=== PATIENT | male | born 1970 | race Caucasian/White ===

== ENCOUNTER 2016-07-31 22:54 | Emergency (ER) | payer BC ==
[~2016-07-31] VITALS: Ht 172.7 cm; Wt 81.6 kg
[~2016-07-31 22:54] MED LIST: DIPH25CA65 PO; EPP3/2 IM; ONDA4TAB7 SL; ZNT/150 PO
[2016-07-31 22:55] VITALS: TEMP 37; Ht 172.7 cm; Wt 81.6 kg
[2016-07-31] MEDS ORDERED: IBUP-1050 PO (23:54)
--- NOTE | 2016-07-31 23:56 | EMERGENCY ROOM VISIT NOTE ---
History First contact with patient: 22:58 Chief Complaint: CALF PAIN Stated Complaint: LF CALF CRAMP,WORRIED ABOUT BLOOD CLOT History of Present Illness The patient is a 46 year old male who presents to the Emergency Room with complaints of left calf pain. The patient reports that yesterday he had an intense cramp in his left calf which lasted approximately 5 minutes and has had a dull, aching pain since then. He rates the discomfort a 4/10 and states it is worse with walking. He has been stretching the calf without relief. He denies any numbness or weakness. He reports he is concerned about a possible blood clot. The patient denies any history or family history of blood clots. He is not a smoker. He denies any recent long trips. Review of Systems A complete 6 point review of systems was reviewed with the patient with pertinent positives and negatives as per history of present illness. All else were negative. Family History Diabetes mellitus FH: cancer Hypertension Social History Smoking Status: Never Smoker Alcohol Use: occasionally Housing Status: lives with significant other Occupation Status: employed Current/Historical Medications Scheduled Epinephrine (Epipen), 0.3 MG IM UD Scheduled PRN Diphenhydramine Hcl (Benadryl Allergy), 25-50 MG PO Q6 PRN for ALLERGIC REACTION Ibuprofen (Advil), 200-600 MG PO DIRECTED PRN for Pain Allergies Coded Allergies: Amphetamine (Verified Allergy, Intermediate, HEADACHE, CONFUSED, 07/31/16) Dewitt Blue FCF (Verified Allergy, Intermediate, HEADACHE, CONFUSION, ) Dextroamphetamine (Verified Allergy, Intermediate, HEADACHE, CONFUSED, 07/31) Lisdexamfetamine (Verified Allergy, Intermediate, HEADACHE, CONFUSION, 07/31) Red Dye (Verified Allergy, Intermediate, HEADACHE, CONFUSION, 07/31/16) Yellow Dye (Verified Allergy, Intermediate, HEADACHE, CONFUSION, 07/31/16) Barley (Unverified Allergy, Mild, 07/31/16) [place] Pk Oil (Unverified Allergy, Mild, 07/31/16) Lobster (Unverified Allergy, Mild, 07/31/16) Pea (Unverified Allergy, Mild, 07/31/16) Pork (Unverified Allergy, Mild, 07/31/16) Rice (Unverified Allergy, Mild, 07/31/16) Shrimp (Unverified Allergy, Mild, 07/31/16) Soy Protein (Unverified Allergy, Mild, 07/31/16) Tomato (Unverified Allergy, Mild, 07/31/16) Metoclopramide (Unverified Adverse Reaction, Mild, IRRITABILTY, 07/31/16) Cephalexin (Verified Adverse Reaction, Unknown, heart palpitations, 07/31/16 ) No Known Allergies (Verified , 07/31/16) Uncoded Allergies: TURKEY (Allergy, Intermediate, THROAT SWELLING, 10/05/13) Physical Exam Vital Signs Date Time Temp Pulse Resp B/P Pulse Ox O2 Delivery O2 Flow Rate FiO2 08/01/16 00:01 69 18 133/84 95 07/31/16 22:55 37.0 79 16 160/99 97 Room Air Physical Exam VITALS: Vitals are noted on the nurse's note and reviewed by myself. Vital signs stable. GENERAL: This is a 46-year-old male, in no acute distress, nondiaphoretic, well- developed well-nourished. HEART: Regular rate and rhythm, no murmurs gallops or rubs. LUNGS: Clear to auscultation. MUSCULOSKELETAL: Mild tenderness with palpation of the left posterior calf. No erythema, edema or palpable cords. NEURO: Patient was alert and oriented to person place and time. Normal sensation to light and sharp touch. Medical Decision & Procedures ER Provider Diagnostic Interpretation: ULTRASOUND LEFT LEG: No DVT within the left lower extremity. Medical Decision Differential diagnosis includes muscle strain, DVT, superficial thrombus embolism, among others. The patient was evaluated as above. Ultrasound of left leg was performed and read by stat rad. No DVT was found within the left lower extremity. The patient was encouraged to use anti-inflammatories for pain. He verbalized understanding of my assessment and treatment plan and was discharged home in good condition. Impression Primary Impression: Calf pain Departure Information Dispostion Home / Self-Care Condition GOOD Referrals Vazquez Thomas DO (PCP) Patient Instructions A Signature Page, [facility] Additional Instructions For pain control, you can use the following [id number] medicines (if >12 yo): - Regular strength (325mg/tab) Tylenol (acetaminophen) 2 tabs every 4-6 hours as needed. Do not exceed 12 tablets in a 24 hour period. Avoid taking more than 4 grams (4000 mg) of Tylenol per day. This includes any other sources of acetaminophen you may take on a regular basis. - Regular strength (200 mg/tab) Advil (ibuprofen) 1-2 tabs every 4-6 hours as needed. Do not exceed a dose of 3200 mg per day. Follow-up with your primary care provider for any further concerns.
[2016-08-01 00:01] VITALS: BP 133/84; PULSE 69; O2SAT 95
--- NOTE | 2016-08-01 06:32 | DIAGNOSTIC IMAGING REPORT ---
LEFT LOWER EXTREMITY VENOUS DOPPLER CLINICAL HISTORY: Left calf pain. COMPARISON STUDY: No previous studies for comparison. TECHNIQUE: Sonography of the deep venous system of the left lower extremity was performed. Compression and augmentation were evaluated. FINDINGS: The common femoral, superficial femoral and popliteal veins were compressible. Augmentation was normal. Flow was shown within the deep calf vessels. IMPRESSION: No evidence of deep venous thrombus within the left lower extremity. Electronically signed by: Angel Amaya M.D. 08/01/2016 6:30 AM Dictated Date/Time: 08/01/2016 6:29 AM
== END 2016-08-01 00:02 | disposition home or self-care (01) ==
LOC: C.EDB 22:55
DX: M79.662 Pain in left lower leg (principal)

== ENCOUNTER → 2017-09-01 | Outpatient (CLI) | payer OTHER ==
[~2017-09-01] MED LIST changes: +IBUP-1050 PO; -ONDA4TAB7 SL; -ZNT/150 PO
--- NOTE | 2017-09-01 10:32 | DIAGNOSTIC IMAGING REPORT ---
ULTRASOUND ABDOMEN COMPLETE CLINICAL HISTORY: Generalized abdominal pain. COMPARISON STUDY: Abdominal CT dated 05/15/2008. TECHNIQUE: Real-time, grayscale, and color flow sonography of the abdomen was performed. Images are reviewed in the transverse and longitudinal planes. FINDINGS: Liver: The liver is normal in size and echotexture. There is no intrahepatic biliary ductal dilatation. The main portal vein is patent. Gallbladder: The gallbladder is normal in appearance. No gallstones are identified. There is no gallbladder wall thickening or pericholecystic fluid. A sonographic Noe's sign is reportedly absent. The common bile duct measures up to 0.4 cm in diameter. Pancreas: Not well visualized due to overlying bowel gas. Spleen: The spleen is normal in size and echotexture, measuring 9.8 cm in length. Kidneys: The kidneys are normal in size and echotexture. There is no hydronephrosis. The right kidney measures 10.7 cm in length and the left kidney measures 10.9 cm in length. No shadowing calculi are identified. Abdominal vasculature: Visualized portions of the abdominal aorta and IVC are normal as imaged. Ascites: None. IMPRESSION: Unremarkable sonographic assessment of the abdomen. No gallstones are seen. Electronically signed by: Sunday Felix M.D. 09/01/2017 10:31 AM Dictated Date/Time: 09/01/2017 10:30 AM
== END | disposition home or self-care (01) ==
LOC: C.ULTRBC 07:56
PROVIDERS: ATTEND Family Medicine
DX: R10.84 Generalized abdominal pain (principal)

== ENCOUNTER 2023-10-01 06:02 | Inpatient (IN) ==
[2023-10-01] MEDS: ADENOSINE IV SOLN 3 MG/ML 2 ML VIAL IV ONE (06:23)
--- NOTE | 2023-10-01 06:29 | Emergency Department Note ---
Impression & Plan Atrial fibrillation with rapid ventricular response ED Provider Note Name: MISSY CONNORS Age: 53 Sex: Male Arrives Via: Walk-In Informant: Patient, ED Provider: Mehdi Davis MD Chief Complaint: Palpitations Impression: As per impressions above Medical Decision Making: Pleasant 53-year-old gentleman with a history of GERD seasonal allergies and known increased coronary calcium score. He has been having on and off palpitations several times a month for the last year or so. Usually symptoms resolved after a few minutes however he has been having palpitations and tachycardia since yesterday evening. Has been noticing some shortness of breath and a bit of substernal chest pain at times throughout the evening. Currently on arrival asymptomatic other than feeling the palpitations. Heart rate is right around 150 and relatively steady. Difficult to tell if a flutter/fib/SVT. He was given 6 mg IV adenosine. Rate slowed to the 70s 80s and was clearly a flutter. Patient tolerated this well. He was given 1 L normal saline and several rounds of IV Lopressor. Heart rate minimally changed. He was then given 15 mg IV diltiazem followed by diltiazem drip. After short while he developed a prolonged cardiac pause but then converted to normal sinus rhythm. Patient completely asymptomatic after this feeling much better. Laboratory workup is somewhat reassuring. His initial troponin is within normal range. I discussed the case with hospitalist given his recurrent symptoms and findings here initially. They will bring him in for further management and evaluation. I think this is reasonable. Patient is without any current shortness of breath leg swelling calf pain or other concerning signs or symptoms for PE nor dissection. I do not feel that there is an indication for CT angiography at this time. Will defer anticoagulation decision to hospitalist service. Triage/Nursing Notes reviewed by Me Differential:Premature contractions, electrolyte abnormality, cardiac dysrhythmia, thyroid dysfunction, pulmonary embolism, infection, gastrointestinal, as well as other pathologies. Vital Signs: reviewed and remarkable for tachycardia Interventions: Adenosine 6 mg IV, Lopressor 5 mg IV x 2, Cardizem 50 mg IV, Cardizem drip, normal saline bolus 1 L IV Labs:ED labs Reviewed by me and remarkable for no significant abnormalities Imagin view chest x-ray as per my interpretation no evidence of congestive failure, lobar infiltrate pneumothorax or widened mediastinum. EKG #1:As per my interpretation. Indication palpitation. Atrial fibrillation with rapid ventricular rate at 171 bpm possibly SVT though rate is a bit irregular. QTc is 431. When compared to June 07, 2023 EKG he is no longer in sinus rhythm. EKG #2 as per my interpretation. Indication post spontaneous conversion. Sinus bradycardia 56 bpm with a shortened NV interval. QTc 382. There is no ectopy nor ischemia. On compared to EKG earlier this morning sinus rhythm has replaced previous A-fib RVR. Cardiac/Tele Monitoring: Cardiac Monitoring: An Order was placed for continuous cardiac monitoring. The monitor shows a rate of atrial fibrillation with rapid ventricular response anywhere from 130 to 150 bpm Consults:[place] Hospitalist Service Plan: Disposition:Hospitalization. Condition: Good History of Present Illness: 53-year-old gentleman arrives for evaluation of palpitations. Patient with onset of palpitations around 5 PM last night. Continued throughout the evening. Worse with any exertion. Notes at times he is having substernal chest pressure without radiation. At times he is also feeling a bit short of breath with a heart rate speeds up. Denies any syncope, current chest pain, current shortness of breath. Was feeling fine prior to this. He keeps relatively active without any chest pain or shortness of breath with exertion the last few days. He did have a mild fever and some diarrhea few days ago which is resolved. He took a dose of Benadryl last night hoping that may have helped with this tachycardia without success. He notes long history of tachycardia episodes but it is never been captured while in the ER or at PCP. He has followed with cardiology previously as well. He does have a family history of coronary heart disease with his sister having of a heart attack in the last few years. Patient notes he had a coronary calcium score that was moderately elevated previously. Past Medical History:Coronary calcium, carotid artery calcification, GERD, seasonal allergies Home Medications:Allergy medication Allergies:See Below Vitals:Blood Pressure: 133/85, Pulse 152, RR 18, T 36.1C, O2 100% on RA Physical Exam: GENERAL: Patient is anxious appearing and in mild distress. RESPIRATORY: No dyspnea. Clear to auscultation and equal bilaterally. CARDIOVASCULAR: Tachycardic.No murmur appreciated. GASTROINTESTINAL: Abdomen soft, non-tender, no peritonitis. EXTREMITIES: Normal motion all extremities, no cyanosis, no edema. NEUROLOGIC: Alert and oriented. No focal neurologic deficits appreciated SKIN: No rash, no jaundice, no diaphoresis. PSYCH: Appropriate GCS: 15 ED Course: Times/Reassessments: 6:22 AM. Given 6 mg IV adenosine. Heart rate slowed to the 70s with clear atrial flutter underlying rhythm. Patient tolerated this well heart rate returned back to the 150s shortly thereafter 7:30 AM. Cardizem has been started. Patient having intermittent episodes of normal sinus flipping to A-fib. Eventually had a prolonged cardiac pause but following this was back in normal sinus rhythm without further symptoms. Critical Care: I have personally spent 40 minutes of critical care time in the direct management of this patient. A-fib RVR requiring multiple rounds of IV rate medications. This was a life/limb threatening event. This 40 minutes is in excess of all separately billable procedures. Mehdi Davis MD Past Med/Surg History Medical History Multiple food allergies History of COVID-09 OCTOBER 2020 AND SEPTEMBER 2021 History of anesthesia reaction WITH ONE ARM SURGERY - WHEN WAKING UP SHAKES AND THROWING UP History of esophageal ulcer D/T MULTIPLE FOOD ALLERGIES History of colon polyps BENIGN GERD (gastroesophageal reflux disease) Fatty liver ? History of Lyme disease QUESTIONABLE DX OF (HAS BEEN TX FOR) Borderline high cholesterol RE-CHECK APRIL 2022 Abdominal bloating REASON FOR UPCOMING PROCEDURE Surgical History History of arthroscopy of right knee History of endoscopy History of colonoscopy History of surgery LEFT ARM X2 History of hernia surgery Family History (Updated 10/01/23 @ 08:53 by LIANET العلي) Grandmother Family history of colon cancer Mother , ovarian, breast, mets to brain/lungs Family history of colonic polyps Cancer Mother Family history of cancer Father Heart disease Myocardial infarction Sister Heart disease Other Family history of diabetes mellitus in father Social History Smoking Status: Never smoker Second Hand Exposure: No; Do You Dip or Chew Tobacco: No; Tobacco Cessation Education Requested by Patient: No Hx Alcohol Use: Yes Alcohol type: beer Hx Substance Use: No Preferred Language: Lao Communication Ability: Effective Manager Non Profit Required: No Beliefs That Will Affect Care: None Current Living Situation: Spouse Current Living Situation Comment: AND DAUGHTER Other Information That Helps Us Care for You: No Feels Safe at Home: Yes Safety Concerns: Feels Safe At This Time Assistive Devices: Glasses Allergies Allergies Allergy/AdvReac Type Severity Reaction Status Date / Time amphetamine Allergy Unknown HEADACHE, Verified 10/01/23 08:05 CONFUSED barley Allergy Unknown NAUSEA/FLU Verified 10/01/23 08:05 LIKE SYMPTOMS/BREATHING ISSUES cephalexin Allergy Unknown heart Verified 10/01/23 08:05 palpitations dextroamphetamine Allergy Unknown HEADACHE, Verified 10/01/23 08:05 CONFUSED latex Allergy Unknown ITCHY RASH Verified 10/01/23 08:05 lisdexamfetamine Allergy Unknown HEADACHE, Verified 10/01/23 08:05 CONFUSION peanut Allergy Unknown PEANUT Verified 10/01/23 08:05 BUTTER&PEANUT OIL/NAUSEA/VOMITING/FLU LIKE SYMPTOMS red dye Allergy Unknown HEADACHE, Verified 10/01/23 08:05 CONFUSION shrimp Allergy Unknown NAUSEA/VOMITING/FLU Verified 10/01/23 08:05 LIKE SYMPTOMS yellow dye Allergy Unknown HEADACHE, Verified 10/01/23 08:05 CONFUSION blueberry Allergy Verified 10/01/23 10:28 egg Allergy Verified 10/01/23 11:29 Egg Derived Allergy Verified 10/01/23 11:29 egg yolk Allergy Verified 10/01/23 11:29 lobster Allergy N/V/FLU-LIKE Verified 10/01/23 08:05 SXS Pork/Porcine Containing Allergy N/V/FLU-LIKE Verified 10/01/23 08:05 Products SXS Yeast Allergy Verified 10/01/23 11:29 yeast, dried Allergy Verified 10/01/23 11:29 buckwheat AdvReac Unknown QUESTIONABLE Verified 10/01/23 08:05 ALLERGY - PT NOT SURE metoclopramide AdvReac Unknown IRRITABILTY Verified 10/01/23 08:05 turkey AdvReac Nausea Verified 10/01/23 08:05 [place] Blue FCF Allergy Unknown HEADACHE, Uncoded 10/01/23 08:05 CONFUSION Home Meds Home Medications Medication Instructions Recorded Confirmed azelastine 137 mcg (0.1 %) nasal 2 spray intranasal DAILY PRN 01/03/21 10/01/23 spray aerosol ALLERGIES fluticasone propionate 50 1 spray intranasal DAILY PRN 01/03/21 10/01/23 mcg/actuation nasal ALLERGIES spray,suspension diphenhydramine HCl 25 mg tablet 25 mg PO DAILY PRN ALLERGIES 08/12/21 10/01/23 (Benadryl Allergy) Results & Data (ED) Vital Signs Vital Signs - 24 hr 10/01/23 06:09 10/01/23 06:20 10/01/23 06:23 Temperature 36.1 C L Temperature Source Temporal Artery Scan Pulse Rate 152 H 108 H Pulse Rate [Right Finger] Pulse Rhythm [Right Finger] Respiratory Rate 18 Respiratory Effort / Characteristics Non-Labored Spontaneous Respiratory Depth Normal Respiratory Pattern Blood Pressure 133/85 Blood Pressure [Right Arm] Blood Pressure Mean 101 Blood Pressure Mean [Right Arm] Blood Pressure Position [Right Arm] Pulse Oximetry Oxygen Delivery Method Room Air Sepsis Recent Fever Within 48 Hours No Sepsis New/Unexplained Change in Mental Status No Sepsis Action Taken by Nursing No Action Required 10/01/23 06:26 10/01/23 06:30 10/01/23 06:32 Temperature Temperature Source Pulse Rate 153 H 152 H 149 H Pulse Rate [Right Finger] Pulse Rhythm [Right Finger] Respiratory Rate 23 Respiratory Effort / Characteristics Respiratory Depth Respiratory Pattern Blood Pressure 160/112 H 160/112 H Blood Pressure [Right Arm] Blood Pressure Mean 128 Blood Pressure Mean [Right Arm] Blood Pressure Position [Right Arm] Pulse Oximetry 96 Oxygen Delivery Method Room Air Sepsis Recent Fever Within 48 Hours Sepsis New/Unexplained Change in Mental Status Sepsis Action Taken by Nursing 10/01/23 06:33 10/01/23 06:36 10/01/23 06:37 Temperature Temperature Source Pulse Rate 169 H 80 154 H Pulse Rate [Right Finger] Pulse Rhythm [Right Finger] Respiratory Rate Respiratory Effort / Characteristics Respiratory Depth Respiratory Pattern Blood Pressure Blood Pressure [Right Arm] Blood Pressure Mean Blood Pressure Mean [Right Arm] Blood Pressure Position [Right Arm] Pulse Oximetry Oxygen Delivery Method Sepsis Recent Fever Within 48 Hours Sepsis New/Unexplained Change in Mental Status Sepsis Action Taken by Nursing 10/01/23 06:44 10/01/23 06:59 10/01/23 07:00 Temperature Temperature Source Pulse Rate 132 H 137 H 143 H Pulse Rate [Right Finger] Pulse Rhythm [Right Finger] Respiratory Rate 20 Respiratory Effort / Characteristics Respiratory Depth Respiratory Pattern Blood Pressure 153/116 H 110/94 110/94 Blood Pressure [Right Arm] Blood Pressure Mean 99 Blood Pressure Mean [Right Arm] Blood Pressure Position [Right Arm] Pulse Oximetry 97 Oxygen Delivery Method Room Air Sepsis Recent Fever Within 48 Hours Sepsis New/Unexplained Change in Mental Status Sepsis Action Taken by Nursing 10/01/23 07:09 10/01/23 07:15 10/01/23 07:27 Temperature Temperature Source Pulse Rate 83 81 Pulse Rate [Right Finger] 80 Pulse Rhythm [Right Finger] Irregular Respiratory Rate 15 21 Respiratory Effort / Characteristics Non-Labored Spontaneous Short of Breath SOB on Exertion Respiratory Depth Normal Respiratory Pattern Regular Blood Pressure 121/93 121/93 Blood Pressure [Right Arm] 110/94 Blood Pressure Mean 102 Blood Pressure Mean [Right Arm] 99 Blood Pressure Position [Right Arm] Semi-fowlers Pulse Oximetry 96 95 Oxygen Delivery Method Room Air Room Air Sepsis Recent Fever Within 48 Hours Sepsis New/Unexplained Change in Mental Status Sepsis Action Taken by Nursing 10/01/23 07:30 10/01/23 07:35 10/01/23 07:45 Temperature Temperature Source Pulse Rate 87 52 L 61 Pulse Rate [Right Finger] Pulse Rhythm [Right Finger] Respiratory Rate 22 20 Respiratory Effort / Characteristics Respiratory Depth Respiratory Pattern Blood Pressure 116/88 106/83 Blood Pressure [Right Arm] Blood Pressure Mean 97 90 Blood Pressure Mean [Right Arm] Blood Pressure Position [Right Arm] Pulse Oximetry 96 95 Oxygen Delivery Method Room Air Room Air Sepsis Recent Fever Within 48 Hours Sepsis New/Unexplained Change in Mental Status Sepsis Action Taken by Nursing 10/01/23 07:57 10/01/23 08:00 Temperature Temperature Source Pulse Rate 60 Pulse Rate [Right Finger] 59 L Pulse Rhythm [Right Finger] Irregular Respiratory Rate 17 21 Respiratory Effort / Characteristics Non-Labored Spontaneous Short of Breath SOB on Exertion Respiratory Depth Normal Respiratory Pattern Regular Blood Pressure 112/79 Blood Pressure [Right Arm] 106/83 Blood Pressure Mean 90 Blood Pressure Mean [Right Arm] 90 Blood Pressure Position [Right Arm] Semi-fowlers Pulse Oximetry 96 97 Oxygen Delivery Method Room Air Room Air Sepsis Recent Fever Within 48 Hours Sepsis New/Unexplained Change in Mental Status Sepsis Action Taken by Nursing Laboratory Data 10/01/23 06:20 10/01/23 06:20 Lab Results 10/01/23 Range/Units 06:20 WBC 8.54 (4.8-10.8) K/ul RBC 5.29 (4.70-6.10) M/uL Hgb 17.2 (14.0-18.0) g/dl Hct 48.2 (42.0-52.0) % MCV 91.1 (80.0-100.0) fL MCH 32.5 (25.0-34.0) pg MCHC 35.7 (32.0-36.0) g/dL RDW Std Deviation 39.5 (36.4-46.3) fL RDW Coeff of Tina 11.9 (11.5-14.5) % Plt Count 274 (130-400) K/uL MPV 9.9 (9.4-12.4) fL Immature Gran % (Auto) 0.2 % Neut % (Auto) 46.3 % Lymph % (Auto) 37.0 % [place] % (Auto) 12.5 % Eos % (Auto) 2.8 % Baso % (Auto) 1.2 % Neut # (Auto) 3.95 (1.40-6.50) K/uL Lymph # (Auto) 3.16 (1.20-3.40) K/uL [place] # (Auto) 1.07 H (0.11-0.59) K/uL Eos # (Auto) 0.24 (0.00-0.50) K/uL Baso # (Auto) 0.10 (0.00-0.20) K/uL Immature Gran # (Auto) 0.02 (0.01-0.20) K/uL PT 10.5 (9.0-12.0) Seconds INR 1.0 (0.9-1.1) APTT 30 (21-31) Seconds PTT Ratio 1.1 Sodium 140 (136-145) mmol/L Potassium 3.7 (3.5-5.1) mmol/L Chloride 103 (98-107) mmol/L Carbon Dioxide 27 (21-32) mmol/L Anion Gap 10 (3-11) BUN 13 (6-23) mg/dl Creatinine 0.91 (0.6-1.4) mg/dl Est Cr Clr Drug Dosing 92.9 ml/min Est GFR ( Amer) 112.7 ml/min Est GFR (Non-Af Amer) 97.2 ml/min BUN/Creatinine Ratio 14.3 (10-20) Glucose 122 H (70-99(Fasting)) mg/dl Calcium 9.6 (8.6-10.3) mg/dl Magnesium 2.0 (1.7-2.4) mg/dl Total Bilirubin 0.7 (0.2-1.0) mg/dl Direct Bilirubin 0.1 (0-0.2) mg/dl AST 30 (13-39) U/L ALT 47 (7-52) U/L Alkaline Phosphatase 67 (34-104) U/L Troponin I High Sens 9.4 (0-20) pg/ml Total Protein 7.6 (6.0-8.3) gm/dl Albumin 4.7 (3.4-5.0) gm/dl Triglycerides 161 H (0-150) mg/dl Cholesterol 222 H (0-200) mg/dl LDL Cholesterol, Calc 127 mg/dl VLDL Cholesterol, Calc 32 H (0-30) mg/dl HDL Cholesterol 63 mg/dl Cholesterol/HDL Ratio 3.5 (0-5) TSH 6.906 H (0.300-4.500) uIu/ml Administered Medications Aspirin (Aspirin 81 Mg Ectab) 81 mg PO [facility] Stop: 10/31/23 10:14 Last Admin: 10/01/23 10:26 Dose: 81 mg Documented By: CADY Calcium/Vitamin D (Calcium 600mg + Vit D 400 Iu Tab) 1 tab PO DAILY [facility] Stop: 10/31/23 10:14 Last Admin: 10/01/23 10:26 Dose: 1 tab Documented By: CADY Metoprolol Succinate (Metoprolol Succ 25mg Ext Rel Tab) 12.5 mg PO [facility] Stop: 10/31/23 10:14 Last Admin: 10/01/23 10:26 Dose: 12.5 mg Documented By: CADY Discontinued Medications Adenosine (Adenosine Iv Soln 3 Mg/Ml 2 Ml Vial) Confirm Administered Dose 18 mg IV .STK-MED ONE Stop: 10/01/23 06:20 Last Admin: 10/01/23 06:23 Dose: 6 mg Documented By: DAYDAY Diltiazem HCl (Diltiazem Hcl 5 Mg/Ml 5 Ml Vial) 15 mg IV NOW STA Stop: 10/01/23 06:58 Last Admin: 10/01/23 07:04 Dose: 15 mg Documented By: RAUL Co-signed By: CORRINE Sodium Chloride (Nss) 1,000 mls @ 999 mls/hr IV .Q1H1M ONE Stop: 10/01/23 07:25 Last Infusion: 10/01/23 07:43 Dose: Infused Documented By: Admin: 10/01/23 06:32 Dose: 999 mls/hr Documented By: DAYDAY Diltiazem HCl 125 mg/ Dextrose 125 mls @ 5 mls/hr IV .Q24H [facility]; Protocol Stop: 10/31/23 06:59 Last Titration: 10/01/23 11:00 Dose: Infused Documented By: CADY Co-signed By: HOLLY Admin: 10/01/23 07:26 Dose: 5 mg/hr, 5 mls/hr Documented By: RAUL Co-signed By: KEYSHAWN Magnesium Sulfate/Dextrose (Magnesium Sulfate / D5w) 1 gm in 100 mls @ 50 mls/hr IV Q2H [facility] Stop: 10/01/23 11:44 Last Infusion: 10/01/23 12:37 Dose: Infused Documented By: Admin: 10/01/23 10:19 Dose: 50 mls/hr Documented By: Infusion: 10/01/23 09:54 Dose: Infused Documented By: Admin: 10/01/23 07:53 Dose: 50 mls/hr Documented By: RAUL Metoprolol Tartrate (Metoprolol Tartrate 1 Mg/Ml Vial) 5 mg IV NOW STA Stop: 10/01/23 06:26 Last Admin: 10/01/23 06:32 Dose: 5 mg Documented By: DAYDAY Metoprolol Tartrate (Metoprolol Tartrate 1 Mg/Ml Vial) 5 mg IV NOW STA Stop: 10/01/23 06:39 Last Admin: 10/01/23 06:44 Dose: 5 mg Documented By: DAYDAY Miscellaneous (Stat Iv Infusion Titration Per Protocol) 1 each N/A NOW STA Stop: 10/01/23 06:58 Last Admin: 10/01/23 07:27 Dose: 1 each Documented By: RAUL Potassium Chloride (Potassium Chloride Crtab 20 Meq Tabcr) 40 meq PO NOW STA Stop: 10/01/23 07:35 Last Admin: 10/01/23 07:51 Dose: 40 meq Documented By: RAUL Imaging Data Radiologist's Impression: Chest X-Ray 10/01/23 06:26 XR chest 1V portable CLINICAL HISTORY: chest pain, tachycardia TECHNIQUE: Single frontal radiograph of the chest was obtained. Comparison: Comparison is made to chest radiograph 06/24/2022 FINDINGS: No lines and tubes are seen. The cardiomediastinal silhouette is normal. The lungs are clear. No evidence of pleural effusion or pneumothorax. IMPRESSION: No acute chest disease. ACT 112: Negative or not required by law. Electronically signed by: Prabhakar Sandoval M.D. 10/01/2023 8:38 AM Discharge Plan Visit Data Chief Complaint: Tachycardia Stated Complaint: TACHYCARDIA ED Provider: Mehdi Davis Discharge Problem: Atrial fibrillation with rapid ventricular response Patient Disposition: Admitted As Inpatient Discharge Instructions Interventions: ED Discharge Assessment Last Done: 10/01/23 09:28
[2023-10-01] MEDS: METOPROLOL TARTRATE 1 MG/ML VIAL IV STA ×2 (06:32→06:44)
[2023-10-01] MEDS: SODIUM CHLORIDE 0.9% 1,000 ML IV ONE (06:32)
[2023-10-01 06:55] LABS: Basophils % (auto) 1.2 %; Eosinophils # (auto) 0.24 K/uL (0.00-0.50); Eosinophils % (auto) 2.8 %; Hematocrit (blood only) 48.2 % (42.0-52.0); Hemoglobin 17.2 g/dl (14.0-18.0); Immature Granulocytes # (auto) 0.02 K/uL (0.01-0.20); Immature Granulocytes % (auto) 0.2 %; Lymphocytes # (auto) 3.16 K/uL (1.20-3.40); Mean Corpuscular Hemoglobin 32.5 pg (25.0-34.0); Mean Corpuscular Hgb Conc 35.7 g/dL (32.0-36.0); Mean Corpuscular Volume 91.1 fL (80.0-100.0); Mean Platelet Volume 9.9 fL (9.4-12.4); Monocytes # (auto) 1.07 K/uL (0.11-0.59); Monocytes % (auto) 12.5 %; Neutrophils # (auto) 3.95 K/uL (1.40-6.50); Neutrophils % (auto) 46.3 %; Platelet Count 274 K/uL (130-400); RDW Coefficient of Variation 11.9 % (11.5-14.5); RDW Standard Deviation 39.5 fL (36.4-46.3); Red Blood Count 5.29 M/uL (4.70-6.10); White Blood Count 8.54 K/ul (4.8-10.8)
[2023-10-01] MEDS: dilTIAZem HCl 5 MG/ML 5 ML VIAL IV STA (07:04)
[2023-10-01 07:10] LABS: Albumin Level 4.7 gm/dl (3.4-5.0); BUN Creatinine Ratio 14.3 (10-20); Bilirubin Direct 0.1 mg/dl (0-0.2); Bilirubin,Total 0.7 mg/dl (0.2-1.0); Calcium 9.6 mg/dl (8.6-10.3); Creatinine Clr Calc Pharmacy 92.9 ml/min; Est GFR (African American) 112.7 ml/min; Est GFR (Non-African American) 97.2 ml/min; Potassium 3.7 mmol/L (3.5-5.1); Total Protein 7.6 gm/dl (6.0-8.3)
[2023-10-01 07:16] LABS: Troponin I High Sensitivity 9.4 pg/ml (0-20)
[2023-10-01 07:26] LABS: Thyroid Stimulating Hormone 6.906 uIu/ml (0.300-4.500)
[2023-10-01] MEDS: dilTIAZem HCL 125 MG in DEXTROSE 5% 100 ML IV SCH (07:26)
[2023-10-01] MEDS: STAT IV Infusion **Titration per Protocol STA (07:27)
[2023-10-01 07:33] LABS: Partial Thromboplastin Ratio 1.1; Partial Thromboplastin Time 30 Seconds (21-31); Prothrombin Time 10.5 Seconds (9.0-12.0)
[2023-10-01] MEDS: POTASSIUM CHLORIDE CRTAB 20 MEQ TABCR PO STA (07:51)
[2023-10-01] MEDS: MAGNESIUM SULFATE / D5W 1 GM/100 ML BAG IV SCH (07:53)
--- NOTE | 2023-10-01 08:16 | Electrocardiogram Report ---
Test Reason : Blood Pressure : / mmHG Vent. Rate : 171 BPM Atrial Rate : 000 BPM P-R Int : 000 ms QRS Dur : 074 ms QT Int : 256 ms P-R-T Axes : 000 003 -34 degrees QTc Int : 431 ms Atrial fibrillation with rapid ventricular response Abnormal ECG When compared with ECG of 07-JUN-2023 13:04, Atrial fibrillation has replaced Sinus rhythm Vent. rate has increased BY 101 BPM Confirmed by Cricket Lizama ([id number]) on 10/01/2023 8:16:16 AM Referred By: Confirmed By:Cricket Lizama
--- NOTE | 2023-10-01 08:40 | XRay Report ---
XR chest 1V portable CLINICAL HISTORY: chest pain, tachycardia TECHNIQUE: Single frontal radiograph of the chest was obtained. Comparison: Comparison is made to chest radiograph 06/24/2022 FINDINGS: No lines and tubes are seen. The cardiomediastinal silhouette is normal. The lungs are clear. No evid ence of pleural effusion or pneumothorax. IMPRESSION: No acute chest disease. ACT 112: Negative or not required by law. Electronically signed by: Prabhakar Sandoval M.D. 10/01/2023 8:38 AM
--- NOTE | 2023-10-01 08:50 | History & Physical Report ---
Date of Service October 01, 2023 Assessment & Plan (1) Flutter-fibrillation: Plan: Patient presents with complaints of palpitations and fast HR - Patient reports occurring 2-3 times per month- symptoms as per HPI- usually self limiting and resolves on its own, however this eppisode was longer and more symptomatic with fatigue and palpitations - Following Adenosine administration - Aflutter noted - Converted to NSR on Diltiazem infusion- symptomatic with conversion pause - Currently SR to SB- will stop diltiazem infusion- 2GM Magnesium, 40 KCL, and will initiate Metoprolol 12.5mg PO now - Will have Metoprolol 5mg IV PRN for HR >110 - If returns to flutter- will increase frequency of oral metoprolol - CHADSVASC2- -0 - will initiate aspirin 81mg PO now and daily - discussed stroke risk reduction as well as anticoagulation- revisit based on risk as well as time spent in rhythm - Would be appropriate for outpatient cardiology follow up as well as likely initiating extended monitoring as outpatient prior to cardiology follow up - ECHO eval for any RWMA as well as any chamber enlargement - TSH 6.5 - ECG without STEMI and comparable to his ECG in 2022 without acute change (2) Dyslipidemia: Plan: will obtain lipid panel - medication optimization at that time (3) Carotid artery calcification: Plan: Has had score calculated as per HPI in 2022 as well as stress ECHO in 2022 - Negative - Has not had any anginal symptoms or arrhythmias while actually performing physical stressful job - obtain lipid panel as above as well as HGBA1c (4) Abdominal bloating: Plan: Has previously followed with GI and had EGD performed in 2021 with Colonoscopy - felt his symptoms were GERD/Gastritis related as he has been off his PPI - He is currently not on PPI and does baking soda and water with PPI PRN and feels his symtpoms are controlled - will have PPI PRN (5) Acid reflux: Plan: As above (6) Non-cardiac chest pain: Plan: Reports that left pectoral pain has been present for years - never occurrs with physical activity, but is also not predictable - is somewhat re-producible on the lef midaxillary line - no back pain and no pain around scapula. - likely MSK in nature (7) DVT prophylaxis: Plan: SCDS, Ambulation, ASA History of Present Illness Chief Complaint: palpitations Primary Care Provider: Vazquez Thomas 53 YOM presents to the EMD for palpitations. Patient has medical history of: Coronary artery calcifications- LAD 289, RCA 20 (Score total 309, 2022), HLD, IBS, Seasonal Allergies, GERD. Patient reports palpitations starting late last evening and came to the EMD early this morning. Patient reports that this normally happens to him 2-3 times per month and every time he comes to the EMD he is back to normal. Patient reports that his symptoms always start with abdominal cramping, followed by bloating, and then he notes his HR goes fast, with fluttering feeling and palpitations. Most of the time these break on their own and can last from anywhere from couple of minutes to couple of hours. At times this is associated with left sided chest pain, however he also gets this left pectoral pain even when resting. 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 He never experiences any symptoms of elevated HR, palpitations, or chest pain when doing any of this. In the EMD on arrival he was noted to be with HR 170-180, he was given metoprolol 5mg x2 without effect, and then was given adenosine. Adenosine did slow his HR down to the 70-110 and noted to be Atrial Flutter underlying. He was also placed on Diltiazem infusion at that time. While preparing to see him, he did have a conversion pause of 4.5-5 seconds and returned to NSR/SB with HR in the 50s and BP 106-120 systolic, he was symptomatic with pause. Diltiazem infusion was halted at that time. He was given 2GM magnesium and 40 MEQ Potassium. As this appears to be first time we have caught this on electrical recording, feel that it would be beneficial to monitor in house for 24 hours while possibly setting up extended monitioring as outpatient. We also discussed anticoagulation options, and following calculation of CHADSVASC2, he scored a 0. Will admit to PCU incase he would need further IV medications to control/convert HR, will initiate Metoprolol 12.5 mg daily and will have Metoprolol 5mg IV PRN for HR >110. Will obtain ECHO. Patient does have family history of: CAD, NE, DM, HLD, early cardiac for sister, Dad in 60s from heart attack, CODE: FULL Allergies Allergy/AdvReac Type Severity Reaction Status Date / Time amphetamine Allergy Unknown HEADACHE, Verified 10/01/23 08:05 CONFUSED barley Allergy Unknown NAUSEA/FLU Verified 10/01/23 08:05 LIKE SYMPTOMS/BREATHING ISSUES cephalexin Allergy Unknown heart Verified 10/01/23 08:05 palpitations dextroamphetamine Allergy Unknown HEADACHE, Verified 10/01/23 08:05 CONFUSED latex Allergy Unknown ITCHY RASH Verified 10/01/23 08:05 lisdexamfetamine Allergy Unknown HEADACHE, Verified 10/01/23 08:05 CONFUSION peanut Allergy Unknown PEANUT Verified 10/01/23 08:05 BUTTER&PEANUT OIL/NAUSEA/VOMITING/FLU LIKE SYMPTOMS red dye Allergy Unknown HEADACHE, Verified 10/01/23 08:05 CONFUSION shrimp Allergy Unknown NAUSEA/VOMITING/FLU Verified 10/01/23 08:05 LIKE SYMPTOMS yellow dye Allergy Unknown HEADACHE, Verified 10/01/23 08:05 CONFUSION blueberry Allergy Verified 10/01/23 10:28 lobster Allergy N/V/FLU-LIKE Verified 10/01/23 08:05 SXS Pork/Porcine Containing Allergy N/V/FLU-LIKE Verified 10/01/23 08:05 Products SXS buckwheat AdvReac Unknown QUESTIONABLE Verified 10/01/23 08:05 ALLERGY - PT NOT SURE metoclopramide AdvReac Unknown IRRITABILTY Verified 10/01/23 08:05 soy AdvReac Unknown Gastrointestinal Verified 10/01/23 08:05 Upset turkey AdvReac Nausea Verified 10/01/23 08:05 [place] [employer] [facility] Allergy Unknown HEADACHE, Uncoded 10/01/23 08:05 CONFUSION Home Medications Medication Instructions Recorded Confirmed Type azelastine 137 mcg (0.1 %) nasal 2 spray intranasal DAILY PRN 01/03/21 10/01/23 History spray aerosol ALLERGIES fluticasone propionate 50 1 spray intranasal DAILY PRN 01/03/21 10/01/23 History mcg/actuation nasal ALLERGIES spray,suspension diphenhydramine HCl 25 mg tablet 25 mg PO DAILY PRN ALLERGIES 08/12/21 10/01/23 History (Benadryl Allergy) Past Med/Surg History Medical History Multiple food allergies History of COVID-09 OCTOBER 2020 AND SEPTEMBER 2021 History of anesthesia reaction WITH ONE ARM SURGERY - WHEN WAKING UP SHAKES AND THROWING UP History of esophageal ulcer D/T MULTIPLE FOOD ALLERGIES History of colon polyps BENIGN GERD (gastroesophageal reflux disease) Fatty liver ? History of Lyme disease QUESTIONABLE DX OF (HAS BEEN TX FOR) Borderline high cholesterol RE-CHECK APRIL 2022 Abdominal bloating REASON FOR UPCOMING PROCEDURE Surgical History History of arthroscopy of right knee History of endoscopy History of colonoscopy History of surgery LEFT ARM X2 History of hernia surgery Family History (Updated 10/01/23 @ 08:53 by LIANET العلي) Grandmother Family history of colon cancer Mother , ovarian, breast, mets to brain/lungs Family history of colonic polyps Cancer Mother Family history of cancer Father Heart disease Myocardial infarction Sister Heart disease Other Family history of diabetes mellitus in father Social History Smoking Status: Never smoker Second Hand Exposure: No; Do You Dip or Chew Tobacco: No; Tobacco Cessation Education Requested by Patient: No Hx Alcohol Use: Yes Alcohol type: beer Hx Substance Use: No Preferred Language: Grenadian Communication Ability: Effective Wood Box Maker Required: No Beliefs That Will Affect Care: None Current Living Situation: Spouse Current Living Situation Comment: AND DAUGHTER Other Information That Helps Us Care for You: No Feels Safe at Home: Yes Safety Concerns: Feels Safe At This Time Assistive Devices: Glasses Review of Systems Review of Systems: REVIEW OF SYSTEMS: Constitutional: No fever, sweats or chills Eyes: No diplopia, no worsening or blurred vision ENT: normal hearing, no trouble swallowing Respiratory: No cough, sputum, dyspnea at rest or on exertion Cardiovascular: (+) CP, Palpitations, Abdomen: (+) bloating and pressure, No pain, nausea, vomiting, diarrhea or constipation Musculoskeletal: No joint pain, calf pain, swelling Neurologic: No weakness, numbness/tingling, or balance problems Psychiatric: (+) ADD Skin: No rash or itch Physical Exam Physical Exam: PHYSICAL EXAM: General: awake, alert, no apparent distress Head: Normocephalic, atraumatic ENT: PERRL, EOMI, no pharyngeal exudate, mucous membranes moist Neuro: AAO x 3, speech clear and appropriate, strength intact bilaterally 5/5, sensation intact and equal all extremities and dermatones, no pronator drift Chest: equal rise and fall of the chest, no accessory muscle use, no heaves or thrills, Clear to auscultation, on room air, Cardiac: Regular rate and rhythm, telemetry reviewed- NSR/SB, skin warm dry, cap refill <3 seconds, peripheral pulses +2 no JVD, no murmur, no edema GI: NABS x 4 quadrants, soft, nontender to palpation, no rebound, guarding or tenderness : Spontaneously voiding, no pain, no CVA tenderness, Extremities: Normal inspection, no peripheral edema or erythema, calfs nontender to palpation Psych: Normal mood and affect Skin: no rash or erythema Results & Data Results & Data Vital Signs (Past 12 Hours) Vital Signs Temp Pulse Pulse Resp BP BP Pulse Ox 10/01/23 07:57 59 L 17 106/83 96 10/01/23 07:35 52 L 10/01/23 07:27 81 121/93 10/01/23 07:09 80 15 110/94 96 10/01/23 06:59 137 H 110/94 10/01/23 06:44 132 H 153/116 H 10/01/23 06:37 154 H 10/01/23 06:36 80 10/01/23 06:33 169 H 10/01/23 06:32 149 H 160/112 H 10/01/23 06:26 153 H 10/01/23 06:23 108 H 10/01/23 06:20 152 H 10/01/23 06:09 36.1 C L 18 133/85 O2 Del Method 10/01/23 07:57 Room Air 10/01/23 07:35 10/01/23 07:27 10/01/23 07:09 Room Air 10/01/23 06:59 10/01/23 06:44 10/01/23 06:37 10/01/23 06:36 10/01/23 06:33 10/01/23 06:32 10/01/23 06:26 10/01/23 06:23 10/01/23 06:20 10/01/23 06:09 Room Air Laboratory Results Abnormal lab results 10/01/23 Range/Units 06:20 [place] # (Auto) 1.07 H (0.11-0.59) K/uL Glucose 122 H (70-99(Fasting)) mg/dl TSH 6.906 H (0.300-4.500) uIu/ml Diagnostic Findings Chest X-Ray 10/01/23 06:26 XR chest 1V portable CLINICAL HISTORY: chest pain, tachycardia TECHNIQUE: Single frontal radiograph of the chest was obtained. Comparison: Comparison is made to chest radiograph 06/24/2022 FINDINGS: No lines and tubes are seen. The cardiomediastinal silhouette is normal. The lungs are clear. No evidence of pleural effusion or pneumothorax. IMPRESSION: No acute chest disease. ACT 112: Negative or not required by law. Electronically signed by: Prabhakar Sandoval M.D. 10/01/2023 8:38 AM Medications Administered Home Medications azelastine 137 mcg (0.1 %) nasal spray aerosol 2 spray intranasal DAILY PRN ALLERGIES 01/03/21 [History Confirmed 10/01/23] fluticasone propionate 50 mcg/actuation nasal spray,suspension 1 spray intranasal DAILY PRN ALLERGIES 01/03/21 [History Confirmed 10/01/23] diphenhydramine HCl 25 mg tablet (Benadryl Allergy) 25 mg PO DAILY PRN ALLERGIES 08/12/21 [History Confirmed 10/01/23] Active Medications Magnesium Sulfate/Dextrose (Magnesium Sulfate / D5w) 1 gm in 100 mls @ 50 mls/hr IV Q2H LEVON Stop: 10/01/23 11:44 Last Admin: 10/01/23 07:53 Dose: 50 mls/hr ECG Additional Comments: Sinus bradycardia with short NM Minimal voltage criteria for LVH, may be normal variant ( R in aVL ) Borderline ECG When compared with ECG of 01-OCT-2023 07:13, (unconfirmed) Sinus rhythm has replaced Atrial fibrillation Code Status & VTE Plan VTE Prophylaxis Plan VTE Prophylaxis will be ordered: Yes Supervising Physician Co-Signing Physician Notes Patient seen and examined. The case was discussed with the ZEINA. In brief, this is a 53-year-old male who has had palpitations in the past for which she has been to the emergency room but every time he comes to the ER, he is back in a sinus rhythm. This episode started last night with his typical symptoms of abdominal bloating, discomfort followed by palpitations. This time, he was noted to be in atrial fibrillation/flutter. He was given adenosine, diltiazem. He has since converted to sinus rhythm. His TSH is unremarkable. Echocardiogram is being done. He recently had a stress echocardiogram which was negative. The diltiazem drip has been discontinued and has been started on metoprolol 12.5 mg. His [id number] score is 0. He has thus been started on baby aspirin. We will admit him under observation status and monitor him on telemetry. I agree with the assessment and plan of the ZEINA. PG Care Time/CCT Total # of Minutes Spent Total Time Spent with Patient: Total time spent is greater than 50% in coordination of care (as documented) at patient's floor/unit and/or counseling patient: Coding Level of Care Code 69764 INT INP/OBS CARE 2/55MIN Diagnoses Flutter-fibrillation I48.91; I48.92 Dyslipidemia E78.5 Carotid artery calcification I65.29 Abdominal bloating R14.0 Acid reflux K21.9 Non-cardiac chest pain R07.89 DVT prophylaxis Z29.9
[2023-10-01] MEDS ORDERED: AZELASTINE HCL 0.1% NASAL 200 SPRAYS/27,400 MCG BTL NAE PRN (09:57)
[2023-10-01] MEDS ORDERED: Nursing to Pharmacy Communication SCH (09:57)
[2023-10-01] MEDS ORDERED: FLUTICASONE PROPIONATE NA SPR 16 GM BTL NAE PRN (09:57)
[2023-10-01] MEDS ORDERED: ACETAMINOPHEN 325 MG TAB PO PRN (09:57)
[2023-10-01] MEDS ORDERED: METOPROLOL TARTRATE 1 MG/ML VIAL IV PRN (09:57)
[2023-10-01] MEDS ORDERED: PANTOprazole 40 MG TAB PO PRN (09:57)
[2023-10-01] MEDS: ASPIRIN 81 MG ECTAB PO SCH (10:26)
[2023-10-01] MEDS: METOPROLOL SUCC 25MG EXT REL TAB PO SCH (10:26)
[2023-10-01] MEDS: CALCIUM 600MG + VIT D 400 IU TAB PO SCH (10:26)
[2023-10-01 10:41] LABS: Chol HDL Ratio 3.5 (0-5)
--- NOTE | 2023-10-01 11:35 | Electrocardiogram Report ---
Test Reason : Blood Pressure : / mmHG Vent. Rate : 081 BPM Atrial Rate : 000 BPM P-R Int : 000 ms QRS Dur : 078 ms QT Int : 344 ms P-R-T Axes : 000 000 001 degrees QTc Int : 399 ms Atrial fibrillation Abnormal ECG When compared with ECG of 01-OCT-2023 06:16, Vent. rate has decreased BY 90 BPM Confirmed by Cricket Lizama ([id number]) on 10/01/2023 11:34:40 AM Referred By: REFERRED SELF Confirmed By:Cricket Lizama
--- NOTE | 2023-10-01 11:35 | Electrocardiogram Report ---
Test Reason : Blood Pressure : / mmHG Vent. Rate : 056 BPM Atrial Rate : 056 BPM P-R Int : 108 ms QRS Dur : 080 ms QT Int : 396 ms P-R-T Axes : 007 -07 -12 degrees QTc Int : 382 ms Sinus bradycardia with short NV Minimal voltage criteria for LVH, may be normal variant ( R in aVL ) Borderline ECG When compared with ECG of 01-OCT-2023 07:13, Sinus rhythm has replaced Atrial fibrillation HR has decreased by 25 bpm Confirmed by Cricket Lizama ([id number]) on 10/01/2023 11:35:07 AM Referred By: REFERRED SELF Confirmed By:Cricket Lizama
[2023-10-01 12:01] LABS: Appearance Urine Clear (Clear); Bilirubin Urine Negative (Negative); Blood Urine Negative (Negative); Color Urine Yellow; Glucose Urine UA Negative (Negative); Ketones Urine Negative (Negative); Leukocyte Esterase Urine Negative (Negative); Nitrite Urine Negative (Negative); Protein Urine Negative (Negative); Specific Gravity Urine 1.015 (1.000-1.030); Urobilinogen Urine Negative (Negative); pH Urine 6.5 (4.5-7.5)
--- NOTE | 2023-10-01 12:08 | XCELERA ---
[id number] \\[id number]
[2023-10-02 06:37] LABS: Basophils # (auto) 0.08 K/uL (0.00-0.20); Basophils % (auto) 1.2 %; Eosinophils # (auto) 0.16 K/uL (0.00-0.50); Eosinophils % (auto) 2.4 %; Hematocrit (blood only) 45.6 % (42.0-52.0); Hemoglobin 15.6 g/dl (14.0-18.0); Immature Granulocytes # (auto) 0.01 K/uL (0.01-0.20); Immature Granulocytes % (auto) 0.1 %; Lymphocytes # (auto) 2.52 K/uL (1.20-3.40); Lymphocytes % (auto) 37.3 %; Mean Corpuscular Hgb Conc 34.2 g/dL (32.0-36.0); Mean Corpuscular Volume 93.6 fL (80.0-100.0); Mean Platelet Volume 9.6 fL (9.4-12.4); Monocytes # (auto) 0.72 K/uL (0.11-0.59); Monocytes % (auto) 10.7 %; Neutrophils # (auto) 3.26 K/uL (1.40-6.50); Neutrophils % (auto) 48.3 %; Platelet Count 235 K/uL (130-400); RDW Coefficient of Variation 12.1 % (11.5-14.5); RDW Standard Deviation 41.7 fL (36.4-46.3); Red Blood Count 4.87 M/uL (4.70-6.10); White Blood Count 6.75 K/ul (4.8-10.8)
[2023-10-02 07:11] LABS: BUN Creatinine Ratio 16.3 (10-20); Calcium 8.8 mg/dl (8.6-10.3); Creatinine Clr Calc Pharmacy 91.9 ml/min; Est GFR (African American) 111.2 ml/min; Magnesium 2.2 mg/dl (1.7-2.4); Potassium 3.9 mmol/L (3.5-5.1)
[2023-10-02 07:12] LABS: Estimated Average Glucose 117 mg/dl; Hemoglobin A1C 5.7 % (4.5-5.6)
[2023-10-02] MEDS: POTASSIUM CHLORIDE CRTAB 20 MEQ TABCR PO STA (08:55)
--- NOTE | 2023-10-02 11:41 | Cardiology Consultation ---
Date of Consultation October 02, 2023 Assessment & Plan (1) Paroxysmal atrial fibrillation: (2) Dyslipidemia: (3) Elevated coronary artery calcium score: Plan ASSESSMENT/PLAN: 1. Paroxysmal atrial fibrillation: Discussed the diagnosis with him in detail. Discussed treatment strategies. Because he is so symptomatic, rate control strategy unlikely to be sufficient in controlling his symptoms, and additionally he had a significant symptomatic conversion pauses while on diltiazem IV. Okay to continue with low-dose beta-christine for now. Discussed antiarrhythmic therapy versus ablation. Given his young age and otherwise being healthy, ablation seems like a reasonable option. Tentatively, he is [place] [facility] [place] assist in requesting a referral. [id number] or is 0. Long-term anticoagulation therapy is not necessary at this point. 2. Elevated coronary artery calcium score: No angina, despite regular cardiovascular exercise. Risk factor modification. Can continue aspirin. Recommend high intensity statin therapy. Had unremarkable stress echo on 04/28/2023 with excellent exercise tolerance. 3. Dyslipidemia: Recommend high intensity statin therapy given concern for underlying CAD. 4. Disposition: Can follow-up with his primary gathering machine feeder, Dr. De La O, while awaiting formal EP evaluation in the outpatient setting. No further inpatient cardiology testing necessary at this time. Patient care communicated with primary hospitalist, Dr. Miles. Thank you for allowing me to participate in the care of your patient. Please call for any other questions or concerns. Sincerely, Amrik Hillman M.D. History of Present Illness Reason for Consultation: "aflutter" Requesting Physician: Nichole Carlisle Attending Physician: Jere Miles History of Present Illness Mr. Lynn is a very pleasant 53-year-old gentleman with a history significant for elevated coronary artery calcium score, dyslipidemia, and chronic palpitations. His primary gathering machine feeder is Dr. De La O. He has been experiencing palpitations for years which he attributed to panic attacks. Over the past few months, he has been experiencing increased frequency, approximately twice per month. Episodes of palpitations would typi cierra last a couple of hours. He was admitted on 10/01/2023 after presenting to the emergency department for palpitations. He felt weak, shaky, with racing heart and gastrointestinal bloating which occurred at approximately 9 PM on 09/30/2023. It persisted throughout the night and made it difficult for him to sleep. At 5 AM he came in for evaluation. In the past, by the time he sought medical attention, symptoms had resolved. On this particular instance, symptoms persisted and his initial ECG on 10/01/2023 at 6:16 AM demonstrated atrial fibrillation with rapid ventricular response with heart rate of 171 bpm. According to records, he received adenosine and it was felt as though atrial flutter waves were seen at that time, although that particular rhythm strip is not available for review. He received intravenous diltiazem and converted after a 5.5-second conversion pause which was accompanied by near syncope. He typically does not have near syncope or any other symptom once converting at home. Initial rhythm following conversion appeared to be ectopic atrial rhythm. He was symptomatic even when his A-fib was better controlled and immediately could tell that A-fib converted on 10/01/2023 at 7:31 AM. He has not had any further atrial fibrillation during this hospital stay. He had some chest pain focally on the left lateral chest during A-fib which typically occurs and in general feels exhausted and dyspnea on exertion with his rapid heart rate. Otherwise, he exercises by walking his dog 2 miles and occasionally uses the treadmill and is very active at work and denies exertional chest pain or dyspnea. He denies melena, hematochezia, hematuria, edema, or syncope. He reports transient fever and diarrhea a few days prior to presentation. He denies a history of diabetes hypertension, heart failure, TIA, stroke, or vascular disease. Review of systems: As above. Review of systems otherwise negative/unremarkable. Family history: Father at 62 with [place] and was diabetic. Sister from [place] at 53. Social history: He denies alcohol, tobacco, or drug abuse. He lives at home with his . Has 3 biologic children, a son and a daughter with his first and a daughter with his second . He has 4 grandchildren. 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 He was unaccompanied. Allergies Allergy/AdvReac Type Severity Reaction Status Date / Time amphetamine Allergy Unknown HEADACHE, Verified 10/01/23 08:05 CONFUSED barley Allergy Unknown NAUSEA/FLU Verified 10/01/23 08:05 LIKE SYMPTOMS/BREATHING ISSUES cephalexin Allergy Unknown heart Verified 10/01/23 08:05 palpitations dextroamphetamine Allergy Unknown HEADACHE, Verified 10/01/23 08:05 CONFUSED latex Allergy Unknown ITCHY RASH Verified 10/01/23 08:05 lisdexamfetamine Allergy Unknown HEADACHE, Verified 10/01/23 08:05 CONFUSION peanut Allergy Unknown PEANUT Verified 10/01/23 08:05 BUTTER&PEANUT OIL/NAUSEA/VOMITING/FLU LIKE SYMPTOMS red dye Allergy Unknown HEADACHE, Verified 10/01/23 08:05 CONFUSION shrimp Allergy Unknown NAUSEA/VOMITING/FLU Verified 10/01/23 08:05 LIKE SYMPTOMS yellow dye Allergy Unknown HEADACHE, Verified 10/01/23 08:05 CONFUSION blueberry Allergy Verified 10/01/23 10:28 egg Allergy Verified 10/01/23 11:29 Egg Derived Allergy Verified 10/01/23 11:29 egg yolk Allergy Verified 10/01/23 11:29 lobster Allergy N/V/FLU-LIKE Verified 10/01/23 08:05 SXS Pork/Porcine Containing Allergy N/V/FLU-LIKE Verified 10/01/23 08:05 Products SXS Yeast Allergy Verified 10/01/23 11:29 yeast, dried Allergy Verified 10/01/23 11:29 buckwheat AdvReac Unknown QUESTIONABLE Verified 10/01/23 08:05 ALLERGY - PT NOT SURE metoclopramide AdvReac Unknown IRRITABILTY Verified 10/01/23 08:05 turkey AdvReac Nausea Verified 10/01/23 08:05 [place] Blue [facility] Allergy Unknown HEADACHE, Uncoded 10/01/23 08:05 CONFUSION Home Medications Medication Instructions Recorded Confirmed Type azelastine 137 mcg (0.1 %) nasal 2 spray intranasal DAILY PRN 01/03/21 10/01/23 History spray aerosol ALLERGIES fluticasone propionate 50 1 spray intranasal DAILY PRN 01/03/21 10/01/23 History mcg/actuation nasal ALLERGIES spray,suspension diphenhydramine HCl 25 mg tablet 25 mg PO DAILY PRN ALLERGIES 08/12/21 10/01/23 History (Benadryl Allergy) aspirin 81 mg tablet,delayed 81 mg PO QAM 30 days #30 tabs 10/02/23 Rx release calcium 600 mg-D3 800 unit-mag11 1 tab PO DAILY 30 days #30 tabs 10/02/23 Rx 50 rf-uytw-klqskp-julio cesar-s.borat tablet (Caltrate 600-D Plus Minerals) metoprolol succinate 25 mg 12.5 mg (1/2 x 25 mg) PO QAM 30 10/02/23 Rx tablet,extended release 24 hr days #15 tabs Patient History Medical History (Updated 10/02/23 @ 15:01 by Jose Luis Hillman MD) Paroxysmal atrial fibrillation Multiple food allergies History of COVID-09 OCTOBER 2020 AND SEPTEMBER 2021 History of anesthesia reaction WITH ONE ARM SURGERY - WHEN WAKING UP SHAKES AND THROWING UP History of esophageal ulcer D/T MULTIPLE FOOD ALLERGIES History of colon polyps BENIGN GERD (gastroesophageal reflux disease) Fatty liver ? History of Lyme disease QUESTIONABLE DX OF (HAS BEEN TX FOR) Borderline high cholesterol RE-CHECK APRIL 2022 Abdominal bloating REASON FOR UPCOMING PROCEDURE Surgical History History of arthroscopy of right knee History of endoscopy History of colonoscopy History of surgery LEFT ARM X2 History of hernia surgery Family History (Updated 10/01/23 @ 08:53 by LIANET العلي) Grandmother Family history of colon cancer Mother , ovarian, breast, mets to brain/lungs Family history of colonic polyps Cancer Mother Family history of cancer Father Heart disease Myocardial infarction Sister Heart disease Other Family history of diabetes mellitus in father Social History Smoking Status: Never smoker Second Hand Exposure: No; Do You Dip or Chew Tobacco: No; Hx Alcohol Use: Yes Alcohol type: beer Hx Substance Use: No Preferred Language: Hungarian Communication Ability: Effective Compensation Consultant Required: No Beliefs That Will Affect Care: None Current Living Situation: Spouse Current Living Situation Comment: AND DAUGHTER Feels Safe at Home: Yes Assistive Devices: None Physical Exam Physical Exam: Gen.: No acute distress. Alert and oriented. HEENT: Anicteric sclera. Neck: No JVD. No bruits. Normal carotid upstrokes bilaterally. Cardiac: No ventricular heave. Regular. Normal S1-S2. No murmurs, rubs, or gallops. Pulmonary: Clear to auscultation bilaterally without wheezes, rales, or rhonchi. Abdomen: Soft, nontender, nondistended, with normoactive bowel sounds. No bruits noted. Extremities: 2+ radial pulses bilaterally. 2+ posterior tibialis pulses bilaterally. No edema or cyanosis. Psychiatric: Affect appears appropriate. Results & Data Vital Signs (Past 12 Hours) Vital Signs Temp Pulse Pulse Resp BP Pulse Ox O2 Del Method 10/02/23 07:50 36.9 C 62 19 130/83 99 Room Air 10/02/23 07:20 52 L 10/02/23 04:10 36.8 C 56 L 16 109/79 96 Room Air Laboratory Results Laboratory Results - last 24 hr 10/01/23 10/02/23 Unknown 05:59 WBC 6.75 RBC 4.87 Hgb 15.6 Hct 45.6 MCV 93.6 MCH 32.0 MCHC 34.2 RDW Std Deviation 41.7 RDW Coeff of Tina 12.1 Plt Count 235 MPV 9.6 Immature Gran % (Auto) 0.1 Neut % (Auto) 48.3 Lymph % (Auto) 37.3 [place] % (Auto) 10.7 Eos % (Auto) 2.4 Baso % (Auto) 1.2 Neut # (Auto) 3.26 Lymph # (Auto) 2.52 [place] # (Auto) 0.72 H Eos # (Auto) 0.16 Baso # (Auto) 0.08 Immature Gran # (Auto) 0.01 Sodium 138 Potassium 3.9 Chloride 106 Carbon Dioxide 26 Anion Gap 6 BUN 15 Creatinine 0.92 Est Cr Clr Drug Dosing 91.9 Est GFR ( Amer) 111.2 Est GFR (Non-Af Amer) 96.0 BUN/Creatinine Ratio 16.3 Glucose 110 H Estimat Average Glucose 117 Hemoglobin A1c 5.7 H Calcium 8.8 Magnesium 2.2 Urine Color Yellow Urine Appearance Clear Urine pH 6.5 Ur Specific [place] 1.015 Urine Protein Negative Urine Glucose (UA) Negative Urine Ketones Negative Urine Blood Negative Urine Nitrite Negative Urine Bilirubin Negative Urine Urobilinogen Negative Ur Leukocyte Esterase Negative Diagnostic Findings Chest x-ray report 10/01/2023 reviewed: No acute disease per radiology. ECGs personally reviewed: ECG 10/01/2023 at 6:16 AM: A-fib with RVR 171 bpm. ECG 10/01/2023 at 7:13 AM: A-fib 81 bpm. ECG 10/01/2023 at 8:14 AM: Sinus bradycardia with short NH possible ectopic atrial rhythm 56 bpm.. History and physical report reviewed. Labs reviewed and notable for normal blood counts, stable renal function, normal magnesium, normal potassium, normal renal function, slightly elevated A1c, mildly elevated TSH, normal transaminase levels. ER provider note reviewed. Echo 10/01/2023 report reviewed: Normal LV systolic function and wall motion. EF 60 to 65%. Mild MR. Mildly dilated RV with normal systolic function. Moderate biatrial dilation. Normal RVSP. Telemetry personally reviewed: Atrial fibrillation with rapid ventricular response which converted to sinus versus ectopic atrial rhythm on 10/01/2023 at 7:31 AM following a 5.5-second conversion pause. Cannot exclude atrial flutter initially on telemetry. Medications Administered Current Inpatient Medications Acetaminophen (Acetaminophen 325 Mg Tab) 650 mg PO Q4H PRN PRN Reason: Pain or Fever Stop: 10/31/23 09:56 Aspirin (Aspirin 81 Mg Ectab) 81 mg PO QAM [facility] Stop: 10/31/23 10:14 Last Admin: 10/02/23 08:54 Dose: 81 mg Azelastine HCl (Azelastine Hcl 0.1% Nasal 200 Sprays/27,400 Mcg Btl) 2 sprays SHWETHA DAILY PRN PRN Reason: ALLERGIES Stop: 10/31/23 09:56 Calcium/Vitamin D (Calcium 600mg + Vit D 400 Iu Tab) 1 tab PO DAILY [facility] Stop: 10/31/23 10:14 Last Admin: 10/02/23 08:54 Dose: 1 tab Fluticasone Propionate (Fluticasone Propionate Na Spr 16 Gm Btl) 1 sprays SHWETHA DAILY PRN PRN Reason: ALLERGIES Stop: 10/31/23 09:56 Metoprolol Succinate (Metoprolol Succ 25mg Ext Rel Tab) [facility] [place] Stop: 10/31/23 10:14 Last Admin: 10/02/23 08:54 Dose: 12.5 mg Metoprolol Tartrate (Metoprolol Tartrate 1 Mg/Ml Vial) 5 mg IV Q2H PRN PRN Reason: HR > 120 Stop: 10/31/23 09:56 Pantoprazole Sodium (Pantoprazole 40 Mg Tab) 40 mg PO DAILY PRN PRN Reason: refulx, abdominal bloating Stop: 10/31/23 09:56 PG Care Time/CCT Total # of Minutes Spent Total Time Spent with Patient: Total time spent is greater than 50% in coordination of care (as documented) at patient's floor/unit and/or counseling patient: Coding Level of Care Code 58050 IN/OBS CONSULT LVL 4,60M Diagnoses Paroxysmal atrial fibrillation I48.0 Dyslipidemia E78.5 Elevated coronary artery calcium score R93.1
--- NOTE | 2023-10-02 14:35 | Discharge Summary ---
Discharge Summary Date of Service October 02, 2023 Notes For Next Care Provider Presented in A.flutter, converted while on cardizem drip. has remained in NSR while on metoprolol 12.5 mg - seen by cardiology, recommend Follow up with Dr. De La O. - cardiology did not recommend [facility] anticoagulation Cardiology did recommend high intensity statin - this was NOT started while inpatient. Cardiology recommendation seen after discharge. Patient has follow up appointment with cardiology 10/03, will forward this document to provider so they are aware. Recheck TSH in ~4 weeks Medication Changes From Visit Started metoprolol and ASA 81 mg Admission HPI Per Admitting Provider 53 YOM presents to the EMD for palpitations. Patient has medical history of: Coronary artery calcifications- LAD 289, RCA 20 (Score total 309, 2022), HLD, IBS, Seasonal Allergies, GERD. Patient reports palpitations starting late last evening and came to the EMD early this morning. Patient reports that this normally happens to him 2-3 times per month and every time he comes to the EMD he is back to normal. Patient reports that his symptoms always start with abdominal cramping, followed by bloating, and then he notes his HR goes fast, with fluttering feeling and palpitations. Most of the time these break on their own and can last from anywhere from couple of minutes to couple of hours. At times this is associated with left sided chest pain, however he also gets this left pectoral pain even when resting. 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 He never experiences any symptoms of elevated HR, palpitations, or chest pain when doing any of this. In the EMD on arrival he was noted to be with HR 170-180, he was given metoprolol 5mg x2 without effect, and then was given adenosine. Adenosine did slow his HR down to the 70-110 and noted to be Atrial Flutter underlying. He was also placed on Diltiazem infusion at that time. While preparing to see him, he did have a conversion pause of 4.5-5 seconds and returned to NSR/SB with HR in the 50s and BP 106-120 systolic, he was symptomatic with pause. Diltiazem infusion was halted at that time. He was given 2GM magnesium and 40 MEQ Potas sium. As this appears to be first time we have caught this on electrical recording, feel that it would be beneficial to monitor in house for 24 hours while possibly setting up extended monitioring as outpatient. We also discussed anticoagulation options, and following calculation of CHADSVASC2, he scored a 0. Will admit to PCU incase he would need further IV medications to control/convert HR, will initiate Metoprolol 12.5 mg daily and will have Metoprolol 5mg IV PRN for HR >110. Will obtain ECHO. Patient does have family history of: CAD, RI, DM, HLD, early cardiac for sister, Dad in 60s from heart attack, CODE: FULL Principal Dx & Hospital Course #1 = Principal Diagnosis (1) Flutter-fibrillation: Patient presents with complaints of palpitations and fast HR - Patient reports occurring 2-3 times per month- symptoms as per HPI- usually self limiting and resolves on its own, however this eppisode was longer and more symptomatic with fatigue and palpitations - Following Adenosine administration - Aflutter noted - Converted to NSR on Diltiazem infusion- symptomatic with conversion pause - maintained NSR - Continue Metoprolol 12.5 mg daily l - CHADSVASC2- -0 - will initiate aspirin 81mg PO now and daily - Cardiology consulted - continue Metoprolol - No anticoagulation needed - Outpatient follow up with Dr. De La O, candidate for ablation - Echo: EF 60 to 65%, normal left ventricular wall motion - TSH 6.5 - recommend recheck in 4 weeks (2) Dyslipidemia: triglycerides: 161 LDL: 127 HDL: 60 Cardiology recommended high intensity statin - recommendation seen after discharge, will defer to outpatient cardiology visit 10/03 (3) Carotid artery calcification: Has had score calculated as per HPI in 2022 as well as stress ECHO in 2022 - Has not had any anginal symptoms or arrhythmias while actually performing physical stressful job\ - Lipid panel as above - HgbA1c: 5.7 (4) Abdominal bloating: Has previously followed with GI and had EGD performed in 2021 with Colonoscopy - felt his symptoms were GERD/Gastritis related as he has been off his PPI - He is currently not on PPI and does baking soda and water with PPI PRN and feels his symptoms are controlled -continue PPI PRN (5) Non-cardiac chest pain: Reports that left pectoral pain has been present for years - never occurrs with physical activity, but is also not predictable - is somewhat re-producible on the lef midaxillary line - no back pain and no pain around scapula. - likely MSK in nature Plan Dispo: discharge to home with outpatient cardiology follow up Discharge Exam General: NAD, VS as above Resp: normal respiratory effort, lungs clear to auscultation CV: RRR, no murmur, Abd: normal bowel sounds, non tender, no hepatosplenomegaly Extremities: Moves all extremities, no edema Neuro: A&O x3, Skin: intact, no lesions noted Updated Medication List Medication Instructions Recorded Confirmed Type azelastine 137 mcg (0.1 %) nasal 2 spray intranasal DAILY PRN 01/03/21 10/01/23 History spray aerosol ALLERGIES fluticasone propionate 50 1 spray intranasal DAILY PRN 01/03/21 10/01/23 History mcg/actuation nasal ALLERGIES spray,suspension diphenhydramine HCl 25 mg tablet 25 mg PO DAILY PRN ALLERGIES 08/12/21 10/01/23 History (Benadryl Allergy) aspirin 81 mg tablet,delayed 81 mg PO QAM 30 days #30 tabs 10/02/23 Rx release calcium 600 mg-D3 800 unit-mag11 1 tab PO DAILY 30 days #30 tabs 10/02/23 Rx 50 wq-ioka-qppzyf-julio cesar-s.borat tablet (Caltrate 600-D Plus Minerals) metoprolol succinate 25 mg 12.5 mg (1/2 x 25 mg) PO QAM 30 10/02/23 Rx tablet,extended release 24 hr days #15 tabs Hospital Stay Data Consultations 10/01/23 07:26 ED Decision to Admit Stat 10/02/23 10:02 Consult Cardiology Routine Diagnostic Imagining Performed Chest X-Ray 10/01/23 06:26 XR chest 1V portable CLINICAL HISTORY: chest pain, tachycardia TECHNIQUE: Single frontal radiograph of the chest was obtained. Comparison: Comparison is made to chest radiograph 06/24/2022 FINDINGS: No lines and tubes are seen. The cardiomediastinal silhouette is normal. The lungs are clear. No evidence of pleural effusion or pneumothorax. IMPRESSION: No acute chest disease. ACT 112: Negative or not required by law. Electronically signed by: Prabhakar Sandoval M.D. 10/01/2023 8:38 AM Pending Results Patient Have Any Pending Studies at Discharge: No Discharge Instructions Given to Patient (Per Discharging Provider) Mr. Lynn You were hospitalized after having rapid heart rate/palpitations. You were found to be in abnormal rhythm, called atrial flutter. However, with medication you converted back to normal sinus rhythm. We started you on a medication call Metoprol to help control your heart rate. You were seen by cardiology who was in agreement with this plan, recommended that you did not need anticoagulation or cholesterol medication and you can follow up with Dr. De La O for discussion of further procedure. Dr. De La O's information is attached above. We also tested your thyroid while you were here and this was borderline high. It is recommended that you have this rechecked with your PCP in a few weeks. Medications: We sent a new medication called Metoprolol to your pharmacy. Take once a day. Next dose 3/12 AM. This is an beta christine to help control your heart rate. Common side effects are low blood pressure, lightheadedness or dizziness. Please contact your PCP if you begin to have any of these. We sent a new medication called Aspirin 81mg to your pharmacy. Take once a day. Next dose 3/12 AM. This is an over the counter medication that I have sent to your pharmacy, but insurance may not pay for it and you may need to just purchase this over the counter. This may be stopped shortly by the specimen transporter or PCP. Take your medications as instructed; do not skip a dose of your medicines. Make sure all of your doctors know every medicine you are taking (including [id number] medicines, vitamins, and supplements). Call your primary care provider before taking any new medicines (including over- the-counter medicines, vitamins, and supplements), because some of these may interact with your current medications, or may make your symptoms worse. Tell your primary care provider if you cannot afford your medications. Activity: You can do normal everyday activities as your body allows. Take rest breaks if you feel tired. Do not overexert. Stop activity if you have pain, shortness of breath or feel dizzy. Follow-up appointments: Make an appointment with your primary care physician within one week of discharge. A copy of this summary will be sent to them. Every time you see your primary care physician, or any other doctor, bring your medication list, and a list of questions. CONTACT YOUR PRIMARY CARE PROVIDER if you experience any of the following: Shortness of breath or difficulty breathing Fevers or chills Feeling tired with normal activity or experiencing dizziness or fainting Difficulty following your treatment plan, or difficulty taking medications CALL 911 OR GO TO THE EMERGENCY DEPARTMENT if you experience any of the following: Severe abdominal pain or nausea/vomiting Severe chest pain, or chest pain that radiates (moves) to your jaw or arm Sudden, severe shortness of breath or difficulty breathing Thank you for allowing us to participate in your care. Total Time Total Time Spent Total Time Spent (In Minutes): Time spend day of discharge 40 minutes including direct patient care, medication reconciliation, documentation, review of labs and images, and coordination of care. Coding Level of Care Code 97340 INP/OBS DISCH >30 MIN Diagnoses Flutter-fibrillation I48.91; I48.92 Dyslipidemia E78.5 Carotid artery calcification I65.29 Abdominal bloating R14.0 Non-cardiac chest pain R07.89
--- NOTE | 2023-10-03 06:13 | Electrocardiogram Report ---
Test Reason : Blood Pressure : / mmHG Vent. Rate : 055 BPM Atrial Rate : 055 BPM P-R Int : 110 ms QRS Dur : 088 ms QT Int : 416 ms P-R-T Axes : 034 -08 -04 degrees QTc Int : 397 ms Poor data quality, interpretation may be adversely affected Sinus bradycardia with short PA Minimal voltage criteria for LVH, may be normal variant Nonspecific ST abnormality Abnormal ECG When compared with ECG of 01-OCT-2023 08:14, No significant change was found Confirmed by Jose Luis Hillman ([id number]) on 10/03/2023 6:12:52 AM Referred By: REFERRED SELF Confirmed By:Jose Luis Hillman
== END 2023-10-02 15:02 | disposition home or self-care (01) | DRG 310 ==
LOC: SUATTDRO → ED 06:02 → 2E 08:11 → SUATTDRO 08:11 → 2E 09:28

== ENCOUNTER 2023-12-15 15:38 | Observation (INO) ==
--- NOTE | 2023-12-15 16:00 | Emergency Department Note ---
Impression & Plan Atrial fibrillation with rapid ventricular response ED Provider Note NAME: MISSY CONNORS AGE: 53 SEX: M : 1970 ARRIVES VIA: Walk-In INFORMANT: Patient ED PROVIDER(S): Carlos Schuler DO CHIEF COMPLAINT: chest pain and shortness of breath HPI: Patient is a 53-year-old male with a past medical history of A-fib with RVR, paroxysmal a flutter, reflux who presents to the ER for weakness associated with shortness of breath and chest pain which started this morning at 3 AM. He has had multiple episodes of A-fib. 2 weeks ago was switched to flecainide 50 mg twice daily. He notes he intermittently gets these palpitations. Currently has chest pain shortness of breath when he is up moving around. At rest he has nothing other than feeling very tired and weak and rundown. Feels like his typical A-fib. ADDITIONAL HISTORY OBTAINED: Additional history obtained from who notes that patient last had this in October Chronic Medical/Social Conditions Affecting Care: Per HPI PAST MEDICAL HISTORY:See Below PAST SURGICAL HISTORY:See Below FAMILY HISTORY:See Below SOCIAL HISTORY:See Below HOME MEDICATIONS:See Below ALLERGIES:See Below VITALS:See Below PHYSICAL EXAMINATION: GENERAL: Sitting up in bed, alert, well appearing, well nourished, no distress, non-toxic EYE EXAM: normal conjunctiva. PERRL and EOM's grossly intact. OROPHARYNX: no exudate, no erythema, lips, buccal mucosa, and tongue normal and mucous membranes are moist NECK: supple, no nuchal rigidity, no adenopathy, non-tender LUNGS: Clear to auscultation. Normal chest wall mechanics HEART: Tachycardic and irregular regular, S1 normal and S2 normal ABDOMEN: abdomen soft, non-tender, normo-active bowel sounds, no masses, no rebound or guarding. BACK: Back is symmetrical on inspection and there is no deformity, no midline tenderness, no CVA tenderness. SKIN: no rashes and no bruising UPPER EXTREMITIES: upper extremities are grossly normal. LOWER EXTREMITIES: No pitting edema. NEURO EXAM: Normal sensorium, cranial nerves II-XII grossly intact, normal speech, no gross weakness of arms, no gross weakness of legs. MEDICAL DECISION MAKING: Patient is a 53-year-old male who presents ER for above-stated complaint. IV was established blood work was obtained. Labs show no significant leukocytosis or anemia. BMP with LFTs bilirubin and lipase is unremarkable. Troponin was negative. Upon arrival heart rate was found to be in the 130s and was A-fib with RVR. He was given 5 mg of Lopressor. Heart rate trended down to the 90s to low 100s. Patient had several episodes of long pauses about [address] Kang jesus her from cardiology. He recommended 100 mg of flecainide orally as patient was still in A-fib. He was currently fairly rate controlled. Updated the patient and at bedside. Chest x-ray was unremarkable. Discussed case with the hospitalist for further evaluation management treatment. Patient remained on the pads while in the ER due to the pulses Consults/Care Managements Discussions: Per [facility] Triage Nursing notes reviewed. Limited review of prior medical records performed Vital Signs: reviewed and remarkable for tachy Differential diagnosis: Cardiac ischemia, aortic dissection, pulmonary embolism, pneumothorax, pneumonia, pericarditis, myocarditis, esophageal rupture, GERD, cholecystitis, pancreatitis, musculoskeletal, as well as other pathologies. ER treatment provided: See below Diagnostics interpreted by me include EKG and cardiac monitoring as listed below: -Cardiac Monitoring: An order was placed for continuous cardiac monitoring. The monitor shows a rate of 120 with AFIB rhythm. -ECG: A-fib rate of 118 Left axis No PVCs Nonspecific ST wave changes QTc 423 -Laboratory studies:Interpreted by me as stated above in MDM and shown below. Imaging studies: Xrays: As interpreted by me: Portable AP upright 1 view of the chest shows no focal infiltrate CTs show: none Procedures:none Critical Care: I have personally spent 32 minutes of critical care time in the direct management of this patient. This includes bedside care, interpretation of diagnostic studies, and testing, discussion with consultants, patient, and family members, and other required patient management activities. This 32 minutes is in excess of all separately billable procedures. Past Med/Surg History Problem List (Updated 12/15/23 @ 19:59 by Carlos Schuler DO) Atrial fibrillation with rapid ventricular response (Acute) Suspected sleep apnea Snoring Hypersomnia Atrial flutter with rapid ventricular response Paroxysmal atrial flutter Paroxysmal atrial fibrillation Family history of premature coronary heart disease Elevated coronary artery calcium score History of colon polyps Abdominal bloating REASON FOR UPCOMING PROCEDURE Stomach problems (Acute) Urinary problem (Acute) Heartburn (Acute) Vomiting (Acute) Acid reflux Encounter for pre-operative examination Medical History Flutter-fibrillation Dyslipidemia Carotid artery calcification Paroxysmal atrial fibrillation Multiple food allergies History of COVID-19 History of anesthesia reaction History of esophageal ulcer History of colon polyps GERD (gastroesophageal reflux disease) Fatty liver History of Lyme disease Borderline high cholesterol Abdominal bloating Surgical History History of arthroscopy of right knee History of endoscopy History of colonoscopy History of surgery History of hernia surgery Family History Grandmother Family history of colon cancer Mother Family history of colonic polyps Cancer Mother Family history of cancer Father Heart disease Myocardial infarction Sister Heart disease Other Family history of diabetes mellitus in father Social History Smoking Status: Never smoker Second Hand Exposure: No; Do You Dip or Chew Tobacco: No; Hx Alcohol Use: Yes Alcohol type: beer Hx Substance Use: No Preferred Language: Georgian Communication Ability: Effective Architecture Manager Required: No Beliefs That Will Affect Care: None Current Living Situation: Spouse Current Living Situation Comment: AND DAUGHTER Feels Safe at Home: Yes Assistive Devices: None Allergies Allergies Allergy/AdvReac Type Severity Reaction Status Date / Time amphetamine Allergy Unknown HEADACHE, Verified 11/17/23 09:58 CONFUSED barley Allergy Unknown NAUSEA/FLU Verified 11/17/23 09:58 LIKE SYMPTOMS/BREATHING ISSUES cephalexin Allergy Unknown heart Verified 11/17/23 09:58 palpitations dextroamphetamine Allergy Unknown HEADACHE, Verified 11/17/23 09:58 CONFUSED latex Allergy Unknown ITCHY RASH Verified 11/17/23 09:58 lisdexamfetamine Allergy Unknown HEADACHE, Verified 11/17/23 09:58 CONFUSION peanut Allergy Unknown PEANUT Verified 11/17/23 09:58 BUTTER&PEANUT OIL/NAUSEA/VOMITING/FLU LIKE SYMPTOMS red dye Allergy Unknown HEADACHE, Verified 11/17/23 09:58 CONFUSION shrimp Allergy Unknown NAUSEA/VOMITING/FLU Verified 11/17/23 09:58 LIKE SYMPTOMS yellow dye Allergy Unknown HEADACHE, Verified 11/17/23 09:58 CONFUSION blueberry Allergy Verified 11/17/23 09:58 egg Allergy Verified 11/17/23 09:58 Egg Derived Allergy Verified 11/17/23 09:58 egg yolk Allergy Verified 11/17/23 09:58 lobster Allergy N/V/FLU-LIKE Verified 11/17/23 09:58 SXS Pork/Porcine Containing Allergy N/V/FLU-LIKE Verified 11/17/23 09:58 Products SXS Yeast Allergy Verified 11/17/23 09:58 yeast, dried Allergy Verified 11/17/23 09:58 buckwheat AdvReac Unknown QUESTIONABLE Verified 11/17/23 09:58 ALLERGY - PT NOT SURE metoclopramide AdvReac Unknown IRRITABILTY Verified 11/17/23 09:58 turkey AdvReac Nausea Verified 11/17/23 09:58 [place] Blue FCF Allergy Unknown HEADACHE, Uncoded 11/17/23 09:58 CONFUSION Home Meds Home Medications Medication Instructions Recorded Confirmed shannon extract 120 mg capsule 120 mg PO QAM 11/13/23 12/15/23 aspirin 81 mg tablet,delayed 81 mg PO QAM 11/13/23 12/15/23 release magnesium 250 mg tablet 250 mg PO DAILY 11/13/23 12/15/23 azelastine 137 mcg (0.1 %) nasal 2 spray intranasal BID PRN Other 11/17/23 12/15/23 spray aerosol apixaban 5 mg tablet (Eliquis) 5 mg PO UD 12/15/23 12/15/23 flecainide 50 mg tablet 50 mg PO Q12H 12/15/23 12/15/23 multivitamin 1 tab PO QAM 12/15/23 12/15/23 zolpidem 5 mg tablet 5 mg PO HS 12/15/23 12/15/23 Previous Rx's Medication Instructions Recorded metoprolol succinate 25 mg 12.5 mg (1/2 x 25 mg) PO QAM 30 10/02/23 tablet,extended release 24 hr days #15 tabs Results & Data (ED) Vital Signs Vital Signs - 24 hr 12/15/23 15:40 12/15/23 15:47 12/15/23 15:53 Temperature 36.9 C Temperature Source Temporal Artery Scan Pulse Rate 108 H 128 H 132 H Pulse Rate from SpO2 Sensor Respiratory Rate 15 19 Respiratory Effort / Characteristics Non-Labored Spontaneous Respiratory Depth Normal Blood Pressure 126/74 Blood Pressure Mean 91 Pulse Oximetry 93 Oxygen Delivery Method Room Air Oxygen Flow Rate Sepsis Recent Fever Within 48 Hours No Sepsis New/Unexplained Change in Mental Status No Sepsis Action Taken by Nursing No Action Required Oxygen Flow Rate - Titration 12/15/23 15:54 12/15/23 15:54 12/15/23 15:58 Temperature Temperature Source Pulse Rate 121 H Pulse Rate from SpO2 Sensor 100 H Respiratory Rate 20 Respiratory Effort / Characteristics Respiratory Depth Blood Pressure 125/102 H Blood Pressure Mean 115 Pulse Oximetry 99 96 Oxygen Delivery Method Room Air Oxygen Flow Rate 0 Sepsis Recent Fever Within 48 Hours Sepsis New/Unexplained Change in Mental Status Sepsis Action Taken by Nursing Oxygen Flow Rate - Titration 0 12/15/23 15:58 12/15/23 16:00 12/15/23 16:00 Temperature Temperature Source Pulse Rate 112 H Pulse Rate from SpO2 Sensor 104 H Respiratory Rate 25 H Respiratory Effort / Characteristics Respiratory Depth Blood Pressure 134/96 Blood Pressure Mean 99 Pulse Oximetry 96 97 Oxygen Delivery Method Room Air Oxygen Flow Rate Sepsis Recent Fever Within 48 Hours Sepsis New/Unexplained Change in Mental Status Sepsis Action Taken by Nursing Oxygen Flow Rate - Titration 12/15/23 16:02 12/15/23 16:15 12/15/23 16:15 Temperature Temperature Source Pulse Rate 138 H 92 H 96 H Pulse Rate from SpO2 Sensor 83 Respiratory Rate 19 Respiratory Effort / Characteristics Respiratory Depth Blood Pressure 134/96 120/89 Blood Pressure Mean Pulse Oximetry 93 Oxygen Delivery Method Oxygen Flow Rate Sepsis Recent Fever Within 48 Hours Sepsis New/Unexplained Change in Mental Status Sepsis Action Taken by Nursing Oxygen Flow Rate - Titration 12/15/23 16:15 12/15/23 16:28 12/15/23 16:29 Temperature Temperature Source Pulse Rate 81 135 H Pulse Rate from SpO2 Sensor Respiratory Rate Respiratory Effort / Characteristics Respiratory Depth Blood Pressure 120/89 Blood Pressure Mean 92 Pulse Oximetry Oxygen Delivery Method Oxygen Flow Rate Sepsis Recent Fever Within 48 Hours Sepsis New/Unexplained Change in Mental Status Sepsis Action Taken by Nursing Oxygen Flow Rate - Titration 12/15/23 16:30 12/15/23 16:30 12/15/23 16:45 Temperature Temperature Source Pulse Rate 116 H 124 H Pulse Rate from SpO2 Sensor Respiratory Rate 14 12 Respiratory Effort / Characteristics Respiratory Depth Blood Pressure 150/103 H Blood Pressure Mean 126 Pulse Oximetry 97 99 Oxygen Delivery Method Oxygen Flow Rate Sepsis Recent Fever Within 48 Hours Sepsis New/Unexplained Change in Mental Status Sepsis Action Taken by Nursing Oxygen Flow Rate - Titration 12/15/23 16:46 12/15/23 16:46 12/15/23 17:00 Temperature Temperature Source Pulse Rate 71 Pulse Rate from SpO2 Sensor 72 Respiratory Rate 17 Respiratory Effort / Characteristics Respiratory Depth Blood Pressure 130/103 H 142/104 H Blood Pressure Mean 112 128 Pulse Oximetry 99 Oxygen Delivery Method Oxygen Flow Rate Sepsis Recent Fever Within 48 Hours Sepsis New/Unexplained Change in Mental Status Sepsis Action Taken by Nursing Oxygen Flow Rate - Titration 12/15/23 17:00 12/15/23 17:15 12/15/23 17:15 Temperature Temperature Source Pulse Rate 123 H 100 H Pulse Rate from SpO2 Sensor 66 79 Respiratory Rate 16 18 Respiratory Effort / Characteristics Respiratory Depth Blood Pressure 142/109 H Blood Pressure Mean 113 Pulse Oximetry 100 100 Oxygen Delivery Method Oxygen Flow Rate Sepsis Recent Fever Within 48 Hours Sepsis New/Unexplained Change in Mental Status Sepsis Action Taken by Nursing Oxygen Flow Rate - Titration 12/15/23 17:30 12/15/23 17:30 12/15/23 17:45 Temperature Temperature Source Pulse Rate 105 H 121 H Pulse Rate from SpO2 Sensor 87 73 Respiratory Rate 22 23 Respiratory Effort / Characteristics Respiratory Depth Blood Pressure 126/97 Blood Pressure Mean 100 Pulse Oximetry 99 Oxygen Delivery Method Oxygen Flow Rate Sepsis Recent Fever Within 48 Hours Sepsis New/Unexplained Change in Mental Status Sepsis Action Taken by Nursing Oxygen Flow Rate - Titration 12/15/23 17:45 12/15/23 18:00 12/15/23 18:01 Temperature Temperature Source Pulse Rate 142 H 109 H Pulse Rate from SpO2 Sensor Respiratory Rate 34 H 20 Respiratory Effort / Characteristics Respiratory Depth Blood Pressure 118/94 Blood Pressure Mean 111 Pulse Oximetry Oxygen Delivery Method Oxygen Flow Rate Sepsis Recent Fever Within 48 Hours Sepsis New/Unexplained Change in Mental Status Sepsis Action Taken by Nursing Oxygen Flow Rate - Titration 12/15/23 18:01 12/15/23 18:15 12/15/23 18:15 Temperature Temperature Source Pulse Rate 0 L Pulse Rate from SpO2 Sensor 76 Respiratory Rate 17 Respiratory Effort / Characteristics Respiratory Depth Blood Pressure 157/110 H 123/84 Blood Pressure Mean 126 98 Pulse Oximetry 100 97 Oxygen Delivery Method Room Air Oxygen Flow Rate Sepsis Recent Fever Within 48 Hours Sepsis New/Unexplained Change in Mental Status Sepsis Action Taken by Nursing Oxygen Flow Rate - Titration 12/15/23 18:30 12/15/23 18:31 12/15/23 18:31 Temperature Temperature Source Pulse Rate 114 H 104 H Pulse Rate from SpO2 Sensor 99 H 96 H Respiratory Rate 25 H 20 Respiratory Effort / Characteristics Respiratory Depth Blood Pressure 132/109 H Blood Pressure Mean 123 Pulse Oximetry 96 93 Oxygen Delivery Method Oxygen Flow Rate Sepsis Recent Fever Within 48 Hours Sepsis New/Unexplained Change in Mental Status Sepsis Action Taken by Nursing Oxygen Flow Rate - Titration 12/15/23 18:45 12/15/23 18:45 12/15/23 19:00 Temperature Temperature Source Pulse Rate 102 H 138 H Pulse Rate from SpO2 Sensor 79 88 Respiratory Rate 23 21 Respiratory Effort / Characteristics Respiratory Depth Blood Pressure 127/95 Blood Pressure Mean 110 Pulse Oximetry 97 96 Oxygen Delivery Method Oxygen Flow Rate Sepsis Recent Fever Within 48 Hours Sepsis New/Unexplained Change in Mental Status Sepsis Action Taken by Nursing Oxygen Flow Rate - Titration 12/15/23 19:01 12/15/23 19:01 Temperature Temperature Source Pulse Rate 71 Pulse Rate from SpO2 Sensor 64 Respiratory Rate 20 Respiratory Effort / Characteristics Respiratory Depth Blood Pressure 110/83 Blood Pressure Mean 89 Pulse Oximetry 97 Oxygen Delivery Method Room Air Oxygen Flow Rate Sepsis Recent Fever Within 48 Hours Sepsis New/Unexplained Change in Mental Status Sepsis Action Taken by Nursing Oxygen Flow Rate - Titration Laboratory Data 12/15/23 15:55 12/15/23 15:55 Lab Results 12/15/23 Range/Units 15:55 WBC 6.85 (4.8-10.8) K/ul RBC 5.24 (4.70-6.10) M/uL Hgb 16.7 (14.0-18.0) g/dl Hct 48.1 (42.0-52.0) % MCV 91.8 (80.0-100.0) fL MCH 31.9 (25.0-34.0) pg MCHC 34.7 (32.0-36.0) g/dL RDW Std Deviation 39.3 (36.4-46.3) fL RDW Coeff of Tina 11.6 (11.5-14.5) % Plt Count 261 (130-400) K/uL MPV 9.8 (9.4-12.4) fL Immature Gran % (Auto) 0.1 % Neut % (Auto) 53.7 % Lymph % (Auto) 32.7 % [place] % (Auto) 10.2 % Eos % (Auto) 2.3 % Baso % (Auto) 1.0 % Neut # (Auto) 3.67 (1.40-6.50) K/uL Lymph # (Auto) 2.24 (1.20-3.40) K/uL [place] # (Auto) 0.70 H (0.11-0.59) K/uL Eos # (Auto) 0.16 (0.00-0.50) K/uL Baso # (Auto) 0.07 (0.00-0.20) K/uL Immature Gran # (Auto) 0.01 (0.01-0.20) K/uL Sodium 141 (136-145) mmol/L Potassium 4.2 (3.5-5.1) mmol/L Chloride 106 (98-107) mmol/L Carbon Dioxide 30 (21-32) mmol/L Anion Gap 5 (3-11) BUN 15 (6-23) mg/dl Creatinine 0.96 (0.6-1.4) mg/dl Est Cr Clr Drug Dosing 88.1 ml/min Est GFR ( Amer) 105.6 ml/min Est GFR (Non-Af Amer) 91.2 ml/min BUN/Creatinine Ratio 15.6 (10-20) Glucose 100 H (70-99(Fasting)) mg/dl Calcium 9.5 (8.6-10.3) mg/dl Magnesium 2.2 (1.7-2.4) mg/dl Total Bilirubin 0.6 (0.2-1.0) mg/dl AST 21 (13-39) U/L ALT 25 (7-52) U/L Alkaline Phosphatase 65 (34-104) U/L Troponin I High Sens 7.2 (0-20) pg/ml Total Protein 7.5 (6.0-8.3) gm/dl Albumin 4.4 (3.4-5.0) gm/dl Globulin 3.1 (2.5-4.0) gm/dl Albumin/Globulin Ratio 1.4 (0.9-2) Lipase 15 (11-82) U/L Administered Medications Discontinued Medications Flecainide Acetate (Flecainide Acetate 100 Mg Tablet) 100 mg PO NOW STA Stop: 12/15/23 17:52 Last Admin: 12/15/23 18:55 Dose: 100 mg Documented By: NERIS Sodium Chloride (Nss) 1,000 mls @ 999 mls/hr IV .Q1H1M ONE Stop: 12/15/23 16:57 Last Infusion: 12/15/23 17:04 Dose: Infused Documented By: Admin: 12/15/23 16:03 Dose: 999 mls/hr Documented By: NERIS Metoprolol Tartrate (Metoprolol Tartrate 1 Mg/Ml Vial) 5 mg IV NOW STA Stop: 12/15/23 15:58 Last Admin: 12/15/23 16:02 Dose: 5 mg Documented By: NERIS Imaging Data Radiologist's Impression: Chest X-Ray 12/15/23 15:56 SINGLE VIEW CHEST CLINICAL HISTORY: Atypical chest pain FINDINGS: An AP, portable, upright chest radiograph is compared to chest x-ray and chest CT dated 11/16/2023. The heart is enlarged. The pulmonary vasculature is noncongested. There is left basilar scarring/atelectasis. The lungs and pleural spaces are otherwise clear. No pneumothorax is seen. The bony thorax is grossly intact. IMPRESSION: Cardiomegaly with no active disease in the chest. ACT 112: Negative or not required by law. Electronically signed by: Sunday Felix M.D. 12/15/2023 4:17 PM Discharge Plan Visit Data Chief Complaint: Chest Pain Stated Complaint: AFIB ALL MORNING, CHEST PAIN, DIZZY ED Provider: Carlos Schuler Discharge Problem: Atrial fibrillation with rapid ventricular response Forms Stand Alone Forms: [facility] Prescriptions Prescriptions: No Action azelastine 137 mcg (0.1 %) aerosol,spray 2 spray intranasal BID PRN (Reason: Other) Rx Instructions: administer into each nostril metoprolol succinate 25 mg Tablet Extended Release 24 Hr 12.5 mg PO QAM 30 Days Qty: 15 1RF aspirin 81 mg tablet,delayed release (DR/EC) 81 mg PO QAM magnesium 250 mg Tablet 250 mg PO DAILY ashwagandha extract 120 mg Capsule 120 mg PO QAM multivitamin [Men's Multi-Vitamin] Tablet 1 tab PO QAM flecainide 50 mg tablet 50 mg PO Q12H zolpidem 5 mg tablet 5 mg PO HS Eliquis 5 mg tablet 5 mg PO UD Rx Instructions: Not taking this medication yet. Will take a month before procedure Referrals Referrals: Vazquez Thomas [Primary Care Provider] -
[2023-12-15] MEDS: METOPROLOL TARTRATE 1 MG/ML VIAL IV STA (16:02)
[2023-12-15] MEDS: SODIUM CHLORIDE 0.9% 1,000 ML IV ONE (16:03)
[2023-12-15 16:11] LABS: Basophils # (auto) 0.07 K/uL (0.00-0.20); Eosinophils # (auto) 0.16 K/uL (0.00-0.50); Eosinophils % (auto) 2.3 %; Hematocrit (blood only) 48.1 % (42.0-52.0); Hemoglobin 16.7 g/dl (14.0-18.0); Immature Granulocytes # (auto) 0.01 K/uL (0.01-0.20); Immature Granulocytes % (auto) 0.1 %; Lymphocytes # (auto) 2.24 K/uL (1.20-3.40); Lymphocytes % (auto) 32.7 %; Mean Corpuscular Hemoglobin 31.9 pg (25.0-34.0); Mean Corpuscular Hgb Conc 34.7 g/dL (32.0-36.0); Mean Corpuscular Volume 91.8 fL (80.0-100.0); Mean Platelet Volume 9.8 fL (9.4-12.4); Monocytes % (auto) 10.2 %; Neutrophils # (auto) 3.67 K/uL (1.40-6.50); Neutrophils % (auto) 53.7 %; Platelet Count 261 K/uL (130-400); RDW Coefficient of Variation 11.6 % (11.5-14.5); RDW Standard Deviation 39.3 fL (36.4-46.3); Red Blood Count 5.24 M/uL (4.70-6.10); White Blood Count 6.85 K/ul (4.8-10.8)
--- NOTE | 2023-12-15 16:19 | XRay Report ---
SINGLE VIEW CHEST CLINICAL HISTORY: Atypical chest pain FINDINGS: An AP, portable, upright chest radiograph is compared to chest x-ray and chest CT dated 10/23. The heart is enlarged. The pulmonary vasculature is noncongested. There is left basilar scarr ing/atelectasis. The lungs and pleural spaces are otherwise clear. No pneumothorax is seen. The bony thorax is grossly intact. IMPRESSION: Cardiomegaly with no active disease in the chest. ACT 112: Negative or not required by law. Electronically signed by: Sunday Felix M.D. 12/15/2023 4:17 PM
[2023-12-15 16:27] LABS: Albumin Globulin Ratio 1.4 (0.9-2); Albumin Level 4.4 gm/dl (3.4-5.0); BUN Creatinine Ratio 15.6 (10-20); Bilirubin,Total 0.6 mg/dl (0.2-1.0); Calcium 9.5 mg/dl (8.6-10.3); Creatinine Clr Calc Pharmacy 88.1 ml/min; Est GFR (African American) 105.6 ml/min; Est GFR (Non-African American) 91.2 ml/min; Globulin 3.1 gm/dl (2.5-4.0); Potassium 4.2 mmol/L (3.5-5.1); Total Protein 7.5 gm/dl (6.0-8.3)
[2023-12-15 16:32] LABS: Troponin I High Sensitivity 7.2 pg/ml (0-20)
--- NOTE | 2023-12-15 18:22 | History & Physical Report ---
Date of Service December 15, 2023 Assessment & Plan (1) Paroxysmal atrial fibrillation: Plan: Paroxysmal atrial fibrillation Switched to flecainide 50 mg twice daily 2 weeks ago, previously on metoprolol Received flecainide 100 mg metoprolol 5 mg while in the ER. Patient with tachycardia to the 130s and intermittent sinus pauses up to 4.5 seconds Discussed with cardiology. Patient has been given flecainide 100 mg. If he continues to have tachycardic could give another 50 mg p.o. overnight, and then recommend continuing flecainide 150 mg twice daily moving forward. Could consider Multaq if patient is not responsive to this, however we will reassess based on overnight response. Appreciate recommendations [id number] of 0 Admitted to PCU Troponin normal on admission No signs of rate related failure - Magnesium added on admission. Optimize to goal 2.0 Plan DVT prophylaxis: Lovenox Disposition: PCU CODE STATUS: Full code Diet: Heart healthy. Patient is with a peanut, egg, and partly allergies. Noted History of Present Illness Primary Care Provider: Vazquez Thomas Mega is a 53-year-old male with past medical history of paroxysmal atrial fibrillation on metoprolol, hyperlipidemia, GERD, palpitations, anxiety/panic attacks with last stress echo 11/16/2023 showing no ischemic EKG changes and no stress-induced wall motion abnormalities presents with A-fib RVR with intermittent bradycardia/pauses up to approximately 4 and half seconds. He has had weakness, shortness of breath, dyspnea which started at 3 AM. 2 weeks ago he was switched to flecainide 50 mg twice daily from metoprolol. This initially seemed to help and noticed the frequency of his A-fib episodes which were brought up by exertion decreased until he had his recurrence yesterday, which persisted and was worse 3 months morning. He has brief episodes of chest pain which he notices when his heart swings from a high heart rate to a low heart rate. Denies persistent chest pain. No syncope. No chest pain at time of assessment. No leg swelling. No fever, chills, sweats. He follows with [facility] cardiology locally; he reports that he did reach out to multiple cardiology groups including [place] and [place] for ablation however these had an extended delay and was not able to get in for some time. [facility] Dr. Neil was able to see him right away so they have recently established with his practice. Saw him 2 to 3 weeks ago and was started on flecainide 50 mg twice daily with his 12.5 mg of daily metoprolol continued. He notes that this initially seemed to help until his current episode. Denies tobacco use Denies alcohol use Full code Medication allergies reviewed Allergies Allergy/AdvReac Type Severity Reaction Status Date / Time amphetamine Allergy Unknown HEADACHE, Verified 11/17/23 09:58 CONFUSED barley Allergy Unknown NAUSEA/FLU Verified 11/17/23 09:58 LIKE SYMPTOMS/BREATHING ISSUES cephalexin Allergy Unknown heart Verified 11/17/23 09:58 palpitations dextroamphetamine Allergy Unknown HEADACHE, Verified 11/17/23 09:58 CONFUSED latex Allergy Unknown ITCHY RASH Verified 11/17/23 09:58 lisdexamfetamine Allergy Unknown HEADACHE, Verified 11/17/23 09:58 CONFUSION peanut Allergy Unknown PEANUT Verified 11/17/23 09:58 BUTTER&PEANUT OIL/NAUSEA/VOMITING/FLU LIKE SYMPTOMS red dye Allergy Unknown HEADACHE, Verified 11/17/23 09:58 CONFUSION shrimp Allergy Unknown NAUSEA/VOMITING/FLU Verified 11/17/23 09:58 LIKE SYMPTOMS yellow dye Allergy Unknown HEADACHE, Verified 11/17/23 09:58 CONFUSION blueberry Allergy Verified 11/17/23 09:58 egg Allergy Verified 11/17/23 09:58 Egg Derived Allergy Verified 11/17/23 09:58 egg yolk Allergy Verified 11/17/23 09:58 lobster Allergy N/V/FLU-LIKE Verified 11/17/23 09:58 SXS Pork/Porcine Containing Allergy N/V/FLU-LIKE Verified 11/17/23 09:58 Products SXS Yeast Allergy Verified 11/17/23 09:58 yeast, dried Allergy Verified 11/17/23 09:58 buckwheat AdvReac Unknown QUESTIONABLE Verified 11/17/23 09:58 ALLERGY - PT NOT SURE metoclopramide AdvReac Unknown IRRITABILTY Verified 11/17/23 09:58 turkey AdvReac Nausea Verified 11/17/23 09:58 [place] Blue FCF Allergy Unknown HEADACHE, Uncoded 11/17/23 09:58 CONFUSION Home Medications Medication Instructions Recorded Confirmed Type metoprolol succinate 25 mg 12.5 mg (1/2 x 25 mg) PO QAM 30 03/11/24 04/26/24 Rx tablet,extended release 24 hr days #15 tabs shannon extract 120 mg capsule 120 mg PO QAM 11/13/23 11/17/23 History aspirin 81 mg tablet,delayed 81 mg PO QAM 11/13/23 11/17/23 History release calcium carbonate 600 mg-vitamin 1 tab PO DAILY 11/13/23 11/17/23 History D3 20 mcg (800 unit) chewable tablet (Caltrate 600 plus D) magnesium 250 mg tablet 250 mg PO DAILY 11/13/23 11/17/23 History vitamin B complex 1 tab PO DAILY 11/13/23 11/17/23 History azelastine 137 mcg (0.1 %) nasal 2 spray intranasal BID 11/17/23 11/17/23 History spray aerosol Past Med/Surg History Problem List (Updated 12/01/23 @ 00:09 by Christiano Victoria) Suspected sleep apnea Snoring Hypersomnia Atrial flutter with rapid ventricular response Paroxysmal atrial flutter Paroxysmal atrial fibrillation Family history of premature coronary heart disease Elevated coronary artery calcium score History of colon polyps Abdominal bloating REASON FOR UPCOMING PROCEDURE Stomach problems (Acute) Urinary problem (Acute) Heartburn (Acute) Vomiting (Acute) Acid reflux Encounter for pre-operative examination Medical History Flutter-fibrillation Dyslipidemia Carotid artery calcification Paroxysmal atrial fibrillation Multiple food allergies History of COVID-19 History of anesthesia reaction History of esophageal ulcer History of colon polyps GERD (gastroesophageal reflux disease) Fatty liver History of Lyme disease Borderline high cholesterol Abdominal bloating Surgical History History of arthroscopy of right knee History of endoscopy History of colonoscopy History of surgery History of hernia surgery Family History Grandmother Family history of colon cancer Mother Family history of colonic polyps Cancer Mother Family history of cancer Father Heart disease Myocardial infarction Sister Heart disease Other Family history of diabetes mellitus in father Social History Smoking Status: Never smoker Second Hand Exposure: No; Do You Dip or Chew Tobacco: No; Hx Alcohol Use: Yes Alcohol type: beer Hx Substance Use: No Preferred Language: Hungarian Communication Ability: Effective 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 NAD. Cooperative. HEENT: Atraumatic, normocephalic. Pulm: CTAB A&P. -wheezes, -rales, -rhonchi. Symmetrical chest rise. No increased work of breathing. No respiratory distress. Cardiac: Regularly irregular swaying from heart rate of around 70s to 150s while in the room. No murmur Abdominal: Nontender, nondistended, soft. BS present. Extremities: Warm, dry no edema Results & Data Results & Data Vital Signs (Past 12 Hours) Vital Signs Temp Pulse Resp BP Pulse Ox O2 Del Method O2 Flow Rate 12/15/23 18:01 157/110 H 100 Room Air 12/15/23 18:01 109 H 20 12/15/23 18:00 142 H 34 H 12/15/23 17:45 118/94 12/15/23 17:45 121 H 23 12/15/23 17:30 105 H 22 99 12/15/23 17:30 126/97 12/15/23 17:15 142/109 H 12/15/23 17:15 100 H 18 100 12/15/23 17:00 123 H 16 100 12/15/23 17:00 142/104 H 12/15/23 16:46 130/103 H 12/15/23 16:46 71 17 99 12/15/23 16:45 124 H 12 99 12/15/23 16:30 150/103 H 12/15/23 16:30 116 H 14 97 12/15/23 16:29 135 H 12/15/23 16:28 81 12/15/23 16:15 120/89 12/15/23 16:15 96 H 19 93 12/15/23 16:15 92 H 120/89 12/15/23 16:02 138 H 134/96 12/15/23 16:00 134/96 12/15/23 16:00 112 H 25 H 97 12/15/23 15:58 96 Room Air 12/15/23 15:58 96 Room Air 0 12/15/23 15:54 121 H 20 99 12/15/23 15:54 125/102 H 12/15/23 15:53 132 H 12/15/23 15:47 128 H 19 12/15/23 15:40 36.9 C 108 H 15 126/74 93 Room Air PG Care Time/CCT Total # of Minutes Spent Total Time Spent with Patient: Total time spent is greater than 50% in coordination of care (as documented) at patient's floor/unit and/or counseling patient: Coding Level of Care Code 47381 INT INP/OBS CARE 3/75MIN Diagnoses Paroxysmal atrial fibrillation I48.0
[2023-12-15] MEDS ORDERED: ZOLPIDEM TARTRATE 5 MG TAB PO PRN (18:52)
[2023-12-15] MEDS: FLECAINIDE ACETATE 100 MG TABLET PO STA (18:55)
[2023-12-15 19:15] LABS: Magnesium 2.2 mg/dl (1.7-2.4)
[2023-12-15] MEDS ORDERED: ACETAMINOPHEN 325 MG TAB PO PRN (21:23)
[2023-12-15] MEDS: ENOXAPARIN INJ 40 MG/0.4 ML SYR SQ SCH (21:55)
[2023-12-16 08:31] LABS: Basophils # (auto) 0.08 K/uL (0.00-0.20); Basophils % (auto) 1.2 %; Eosinophils # (auto) 0.16 K/uL (0.00-0.50); Eosinophils % (auto) 2.4 %; Hematocrit (blood only) 41.8 % (42.0-52.0); Hemoglobin 14.5 g/dl (14.0-18.0); Immature Granulocytes # (auto) 0.01 K/uL (0.01-0.20); Immature Granulocytes % (auto) 0.1 %; Lymphocytes # (auto) 2.34 K/uL (1.20-3.40); Lymphocytes % (auto) 34.4 %; Mean Corpuscular Hemoglobin 31.4 pg (25.0-34.0); Mean Corpuscular Hgb Conc 34.7 g/dL (32.0-36.0); Mean Corpuscular Volume 90.5 fL (80.0-100.0); Mean Platelet Volume 9.8 fL (9.4-12.4); Monocytes # (auto) 0.67 K/uL (0.11-0.59); Monocytes % (auto) 9.9 %; Neutrophils # (auto) 3.54 K/uL (1.40-6.50); Platelet Count 243 K/uL (130-400); RDW Coefficient of Variation 11.9 % (11.5-14.5); RDW Standard Deviation 39.2 fL (36.4-46.3); Red Blood Count 4.62 M/uL (4.70-6.10)
[2023-12-16 08:57] LABS: BUN Creatinine Ratio 14.8 (10-20); Calcium 8.7 mg/dl (8.6-10.3); Creatinine Clr Calc Pharmacy 96.1 ml/min; Est GFR (African American) 115.3 ml/min; Est GFR (Non-African American) 99.5 ml/min; Potassium 3.7 mmol/L (3.5-5.1)
[2023-12-16] MEDS: FLECAINIDE ACETATE 100 MG TABLET PO SCH (09:24)
[2023-12-16] MEDS: METOPROLOL SUCC 25MG EXT REL TAB PO SCH (09:24)
[2023-12-16] MEDS: ASPIRIN 81 MG ECTAB PO SCH (09:25)
--- NOTE | 2023-12-16 11:03 | Cardiology Consultation ---
Date of Consultation December 16, 2023 Assessment & Plan (1) Paroxysmal atrial fibrillation: -converted to sinus rhythm on an increased dose of flecainide. -scheduled for an ablation at the [facility] in March. -no need for long-term anticoagulation as his CHADSVasc score is 0. -would check QT interval this morning. -if QT interval normal, discharge on flecainide 150 mg b.i.d. History of Present Illness Attending Physician: Shiva High MD History of Present Illness Mr. Lynn is a 53-year-old male admitted yesterday with atrial fibrillation and a rapid ventricular response. This consultation was ordered to assistance cardiac management. Of note, patient is typically followed by Dr. De La O in the outpatient setting. He has also been seen by hot tamale worker, Dr. Neil, at the [facility]. The patient was in his usual state of health until approximately 7:00 a.m. yesterday. He developed symptomatic atrial fibrillation which he confirmed by his Apple watch and phototypesetting equipment monitor. His dysrhythmia typically converts relatively quickly, however, it continued throughout the entire day. Therefore, he presented to the emergency room for further care. On arrival here, he was in atrial fibrillation with a rapid ventricular response. Dr. Marquez was contacted and suggested they administer an additional 100 mg of flecainide. Fortunately, this converted the patient to sinus rhythm at approximately 11:00 p.m. last evening. He has remained in sinus rhythm since that time. He was seen at the [facility] 2 or 3 weeks ago and has been set up for an ablation which will be performed in March. He was started on flecainide 50 mg b.i.d. at that time. He does not take long-term anticoagulation as his CHADSVasc score is 0. The patient did have an echocardiogram performed on September 30 which noted normal left trigger systolic function with ejection fraction of 60-65%. There was mild mitral regurgitation. He then underwent a stress echocardiogram on November 15 which showed no evidence of myocardial ischemia at 12.1 METS and peak heart rate of 86% predicted maximum. Currently, patient is resting comfortably in bed without complaints. Past medical and surgical history 1. Paroxysmal atrial fibrillation 2. Hypercholesterolemia 3. GERD 4. Colonic polyps 5. History of esophageal ulcer 6. Anxiety 7. Panic attacks 8. Right knee arthroscopy 9. Inguinal hernia repair Social history and lives with his Works for the [employer] at [facility] No tobacco alcohol Family history Father at 62 of an NH. A sister at 53 from an NH. Review of systems A 10 point review of systems was undertaken and negative except for that described above. Allergies Allergy/AdvReac Type Severity Reaction Status Date / Time amphetamine Allergy Unknown HEADACHE, Verified 11/17/23 09:58 CONFUSED barley Allergy Unknown NAUSEA/FLU Verified 11/17/23 09:58 LIKE SYMPTOMS/BREATHING ISSUES cephalexin Allergy Unknown heart Verified 11/17/23 09:58 palpitations dextroamphetamine Allergy Unknown HEADACHE, Verified 11/17/23 09:58 CONFUSED latex Allergy Unknown ITCHY RASH Verified 11/17/23 09:58 lisdexamfetamine Allergy Unknown HEADACHE, Verified 11/17/23 09:58 CONFUSION peanut Allergy Unknown PEANUT Verified 11/17/23 09:58 BUTTER&PEANUT OIL/NAUSEA/VOMITING/FLU LIKE SYMPTOMS red dye Allergy Unknown HEADACHE, Verified 11/17/23 09:58 CONFUSION shrimp Allergy Unknown NAUSEA/VOMITING/FLU Verified 11/17/23 09:58 LIKE SYMPTOMS yellow dye Allergy Unknown HEADACHE, Verified 11/17/23 09:58 CONFUSION blueberry Allergy Verified 11/17/23 09:58 egg Allergy Verified 11/17/23 09:58 Egg Derived Allergy Verified 11/17/23 09:58 egg yolk Allergy Verified 11/17/23 09:58 lobster Allergy N/V/FLU-LIKE Verified 11/17/23 09:58 SXS Pork/Porcine Containing Allergy N/V/FLU-LIKE Verified 11/17/23 09:58 Products SXS Yeast Allergy Verified 11/17/23 09:58 yeast, dried Allergy Verified 11/17/23 09:58 buckwheat AdvReac Unknown QUESTIONABLE Verified 11/17/23 09:58 ALLERGY - PT NOT SURE metoclopramide AdvReac Unknown IRRITABILTY Verified 11/17/23 09:58 turkey AdvReac Nausea Verified 11/17/23 09:58 [place] Blue FCF Allergy Unknown HEADACHE, Uncoded 11/17/23 09:58 CONFUSION Home Medications Medication Instructions Recorded Confirmed Type metoprolol succinate 25 mg 12.5 mg (1/2 x 25 mg) PO QAM 30 10/02/23 12/15/23 Rx tablet,extended release 24 hr days #15 tabs ashwagandha extract 120 mg capsule 120 mg PO QAM 11/13/23 12/15/23 History aspirin 81 mg tablet,delayed 81 mg PO QAM 11/13/23 12/15/23 History release magnesium 250 mg tablet 250 mg PO DAILY 11/13/23 12/15/23 History azelastine 137 mcg (0.1 %) nasal 2 spray intranasal BID PRN Other 11/17/23 12/15/23 History spray aerosol apixaban 5 mg tablet (Eliquis) 5 mg PO UD 12/15/23 12/15/23 History flecainide 50 mg tablet 50 mg PO Q12H 12/15/23 12/15/23 History multivitamin 1 tab PO QAM 12/15/23 12/15/23 History zolpidem 5 mg tablet 5 mg PO HS 12/15/23 12/15/23 History Patient History Medical History Flutter-fibrillation Dyslipidemia Carotid artery calcification Paroxysmal atrial fibrillation Multiple food allergies History of COVID-19 History of anesthesia reaction History of esophageal ulcer History of colon polyps GERD (gastroesophageal reflux disease) Fatty liver History of Lyme disease Borderline high cholesterol Abdominal bloating Surgical History History of arthroscopy of right knee History of endoscopy History of colonoscopy History of surgery History of hernia surgery Family History Grandmother Family history of colon cancer Mother Family history of colonic polyps Cancer Mother Family history of cancer Father Heart disease Myocardial infarction Sister Heart disease Other Family history of diabetes mellitus in father Social History Smoking Status: Never smoker Second Hand Exposure: No; Do You Dip or Chew Tobacco: No; Hx Alcohol Use: No Hx Substance Use: No Preferred Language: Yemeni Communication Ability: Effective 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 HEENT exam is negative. Neck is supple with full carotid upstrokes. There are no carotid bruits. Jugular venous pressure is flat at 90. There is no thyromegaly. Cardiovascular exam reveals a regular rhythm with a normal S1 and S2. No S3, S4, or murmurs are noted. Lungs are clear without rales, rhonchi, or wheezes. Abdomen is soft and nontender without bruits. Extremities reveal intact radial artery and posterior tibial pulses bilaterally. There is no peripheral edema. Results & Data Vital Signs (Past 12 Hours) Vital Signs Temp Pulse Resp BP Pulse Ox O2 Del Method 12/16/23 07:57 36.7 C 64 17 113/72 95 Room Air 12/16/23 03:17 36.5 C 61 17 114/72 96 Room Air Laboratory Results CBC notes hemoglobin 14.5, crit 41.8, white count 6.8, and platelet of [id number]. Electrolytes note a sodium 139, potassium 3.7, chloride 108, bicarb 26, BUN 13, creatinine 0.88, glucose of 102. High sensitivity troponin is normal at 7.2. Diagnostic Findings EKG on presentation showed atrial fibrillation with a rapid ventricular response. Chest x-ray shows no acute disease. PG Care Time/CCT Total # of Minutes Spent Total Time Spent with Patient: Total time spent is greater than 50% in coordination of care (as documented) at patient's floor/unit and/or counseling patient: Coding Level of Care Code 39215 IN/OBS CONSULT LVL 4,60M Diagnoses Paroxysmal atrial fibrillation I48.0
--- NOTE | 2023-12-16 11:29 | Electrocardiogram Report ---
Test Reason : Blood Pressure : / mmHG Vent. Rate : 121 BPM Atrial Rate : 278 BPM P-R Int : 000 ms QRS Dur : 080 ms QT Int : 308 ms P-R-T Axes : 000 000 -28 degrees QTc Int : 437 ms Atrial fibrillation with rapid ventricular response Nonspecific T wave abnormality Abnormal ECG When compared with ECG of 15-DEC-2023 15:48, (unconfirmed) No significant change was found Confirmed by Rusty Mancera ([id number]) on 12/16/2023 11:29:23 AM Referred By: REFERRED SELF Confirmed By:Rusty Mancera
--- NOTE | 2023-12-16 11:33 | Discharge Summary ---
Date of Service December 16, 2023 Admission HPI Per Admitting Provider Mega is a 53-year-old male with past medical history of paroxysmal atrial fibrillation on metoprolol, hyperlipidemia, GERD, palpitations, anxiety/panic attacks with last stress echo 11/16/2023 showing no ischemic EKG changes and no stress-induced wall motion abnormalities presents with A-fib RVR with intermittent bradycardia/pauses up to approximately 4 and half seconds. He has had weakness, shortness of breath, dyspnea which started at 3 AM. 2 weeks ago he was switched to flecainide 50 mg twice daily from metoprolol. This initially seemed to help and noticed the frequency of his A-fib episodes which were brought up by exertion decreased until he had his recurrence yesterday, which persisted and was worse 3 months morning. He has brief episodes of chest pain which he notices when his heart swings from a high heart rate to a low heart rate. Denies persistent chest pain. No syncope. No chest pain at time of assessment. No leg swelling. No fever, chills, sweats. He follows with [facility] cardiology locally; he reports that he did reach out to multiple cardiology groups including [place] and [place] for ablation however these had an extended delay and was not able to get in for some time. [facility] Dr. Neil was able to see him right away so they have recently established with his practice. Saw him 2 to 3 weeks ago and was started on flecainide 50 mg twice daily with his 12.5 mg of daily metoprolol continued. He notes that this initially seemed to help until his current episode. Denies tobacco use Denies alcohol use Full code Medication allergies reviewed Principal Diagnosis Recurrent paroxysmal atrial fibrillation Discharge Exam General-alert and oriented x3, no fever, no chills HEENT-head atraumatic and normocephalic, pupils equal and reactive to light, extraocular muscles intact Neck-no lymphadenopathy or thyromegaly, trachea midline Chest-clear to auscultation. No rales, wheezing or rhonchi Cardiac-regular rate and rhythm, normal S1 and S2 Abdomen-normal bowel sounds, no hepatosplenomegaly Extremities-no cyanosis, clubbing, or edema Neuro-cranial nerves II through XII intact, motor and sensory function within normal limits, strength symmetrical, no focal deficits Psych-normal affect, normal mood Discharge Data Allergies Allergy/AdvReac Type Severity Reaction Status Date / Time amphetamine Allergy Unknown HEADACHE, Verified 11/17/23 09:58 CONFUSED barley Allergy Unknown NAUSEA/FLU Verified 11/17/23 09:58 LIKE SYMPTOMS/BREATHING ISSUES cephalexin Allergy Unknown heart Verified 11/17/23 09:58 palpitations dextroamphetamine Allergy Unknown HEADACHE, Verified 11/17/23 09:58 CONFUSED latex Allergy Unknown ITCHY RASH Verified 11/17/23 09:58 lisdexamfetamine Allergy Unknown HEADACHE, Verified 11/17/23 09:58 CONFUSION peanut Allergy Unknown PEANUT Verified 11/17/23 09:58 BUTTER&PEANUT OIL/NAUSEA/VOMITING/FLU LIKE SYMPTOMS red dye Allergy Unknown HEADACHE, Verified 11/17/23 09:58 CONFUSION shrimp Allergy Unknown NAUSEA/VOMITING/FLU Verified 11/17/23 09:58 LIKE SYMPTOMS yellow dye Allergy Unknown HEADACHE, Verified 11/17/23 09:58 CONFUSION blueberry Allergy Verified 11/17/23 09:58 egg Allergy Verified 11/17/23 09:58 Egg Derived Allergy Verified 11/17/23 09:58 egg yolk Allergy Verified 11/17/23 09:58 lobster Allergy N/V/FLU-LIKE Verified 11/17/23 09:58 SXS Pork/Porcine Containing Allergy N/V/FLU-LIKE Verified 11/17/23 09:58 Products SXS Yeast Allergy Verified 11/17/23 09:58 yeast, dried Allergy Verified 11/17/23 09:58 buckwheat AdvReac Unknown QUESTIONABLE Verified 11/17/23 09:58 ALLERGY - PT NOT SURE metoclopramide AdvReac Unknown IRRITABILTY Verified 11/17/23 09:58 turkey AdvReac Nausea Verified 11/17/23 09:58 [place] Blue FCF Allergy Unknown HEADACHE, Uncoded 11/17/23 09:58 CONFUSION Consultations 12/15/23 17:37 ED Decision to Admit Stat 12/16/23 09:00 Consult Cardiology Routine Hospital Course (1) Paroxysmal atrial fibrillation: Recurrent. He has since converted back to normal sinus rhythm and is asymptomatic. Flecainide dosage has been increased. Cardiology consultation has been completed. He has been given clearance for discharge home today, December 15 Plan Home today on higher dose flecainide, December 15 Total Time Total Time Spent Total Time Spent (In Minutes): 45 minutes Discharge Plan Discharge Items Patient Disposition: Home - Self-Care Reason For Visit: AFIB RVR Discharge Diagnosis: Recurrent atrial fibrillation with rapid ventricular rate Activity: Resume your previous activity Non-emergency contact: Primary Care Provider and Cue Worker Call non-emergency contact if: you have any medication questions and your symptoms worsen Follow-up/Referrals: Vazquez Thomas [Primary Care Provider] - Diet: Regular and Heart Healthy Addtl Attending Provider Instructions: Flecainide dosage has been increased. A new prescription has been sent to your pharmacy Pending Studies at Discharge: No Stand-Alone Forms: My [facility] [employer], Smoking Cessation Medications and DC Order Prescriptions: New flecainide 100 mg Tablet 150 mg PO Q12 Qty: 60 0RF Continued azelastine 137 mcg (0.1 %) aerosol,spray 2 spray intranasal BID PRN (Reason: Other) Rx Instructions: administer into each nostril metoprolol succinate 25 mg Tablet Extended Release 24 Hr 12.5 mg PO QAM 30 Days Qty: 15 1RF aspirin 81 mg tablet,delayed release (DR/EC) 81 mg PO QAM magnesium 250 mg Tablet 250 mg PO DAILY ashwagandha extract 120 mg Capsule 120 mg PO QAM multivitamin [Men's Multi-Vitamin] Tablet 1 tab PO QAM zolpidem 5 mg tablet 5 mg PO HS Eliquis 5 mg tablet 5 mg PO UD Rx Instructions: Not taking this medication yet. Will take a month before procedure Discontinued flecainide 50 mg tablet 50 mg PO Q12H Discharge Orders: Discharge Order (Routine); Ordered 12/16/23 Ordered By: Newton [place] Admission Data Admit Date/Time: 12/15/23 18:47 Attending Provider: Shiva High Admit Provider: Shiva High Primary Care Provider: Vazquez Thomas Other Providers: Shiva High; Rusty Mancera Coding Level of Care Code 62411 INP/OBS DISCH >30 MIN Diagnoses Paroxysmal atrial fibrillation I48.0
--- NOTE | 2023-12-17 20:40 | Electrocardiogram Report ---
Test Reason : Blood Pressure : / mmHG Vent. Rate : 058 BPM Atrial Rate : 058 BPM P-R Int : 144 ms QRS Dur : 092 ms QT Int : 436 ms P-R-T Axes : 057 -04 035 degrees QTc Int : 428 ms Sinus bradycardia Nonspecific T wave abnormality Abnormal ECG When compared with ECG of 15-DEC-2023 15:49, Sinus rhythm has replaced Atrial fibrillation Vent. rate has decreased BY 63 BPM Confirmed by Eleuterio Marquez ([id number]) on 12/17/2023 8:40:28 PM Referred By: REFERRED SELF Confirmed By:Eleuterio Marquez
== END 2023-12-16 13:03 | disposition home or self-care (01) | DRG 310 ==
LOC: SUATTDRO → ED 15:38 → INTOOBSV 18:47 → 4W 18:47